=== PATIENT | male | born 1955 | race Caucasian/White ===

== ENCOUNTER 2018-02-19 12:44 | Emergency (ER) | payer OTHER, SELFPAY ==
[2018-02-19] VITALS (7 sets, daily range): BP systolic 108–120; BP diastolic 62–77; PULSE 74–93; RESP 12–16; O2SAT 93–97
--- NOTE | 2018-02-19 12:55 | DI.RAD.S_ITS ---
PROCEDURE: XR CHEST 1V INDICATIONS: chest pain TECHNIQUE: One view of the chest was acquired. COMPARISON: None. FINDINGS: Surgical changes and devices: None. Lungs and pleura: No pleural effusions or pneumothorax. Slight increased pulmonary vascularity. Mediastinum: Mediastinal contours appear normal. Heart size is normal. Bones and chest wall: No suspicious bony lesions. Overlying soft tissues appear unremarkable. IMPRESSION: Slight increased pulmonary vascularity. Dictated by: Haley Dias M.D. on 02/19/2018 at 14:39 Approved by: Haley Dias M.D. on 02/19/2018 at 14:40
[2018-02-19] MEDS: ASPIRIN 81 MG TAB 324 MG PO (12:57)
[2018-02-19 13:06] LABS: INR 1.1 (0.9-1.3); Prothrombin Time 11.5 SECONDS (10.1-12.7)
[2018-02-19 13:09] LABS: PTT Partial Thromboplastin Tim 24 SECONDS (26.4-36.2)
--- NOTE | 2018-02-19 13:09 | PC.NURSE ---
Assumed care. To room 8.
[2018-02-19 13:14] LABS: Alanine Aminotransferase 40 IU/L (21-72); Albumin 4.3 g/dL (3.5-5.0); Albumin Globulin Ratio 1.5 (1.0-2.8); Alkaline Phosphatase 45 U/L (38-126); Aspartate Aminotransferase 29 IU/L (17-59); BUN Creatinine Ratio 21.3 (6-22); Bilirubin Total 1.3 mg/dL (0.2-1.3); Blood Urea Nitrogen 17 mg/dL (9-20); Calcium 9.2 mg/dL (8.4-10.2); Carbon Dioxide 28 mmol/L (22-32); Chloride 101 mmol/L (98-107); Creatine Kinase 333 U/L (55-170); Estimated Glomerular Filt Rate > 60.0 mL/min (>60); Globulin 2.8 g/dL (1.7-4.1); Glucose 137 mg/dL (80-110); Lipase 149 U/L (23-300); Potassium 4.4 mmol/L (3.4-5.1); Sodium 137 mmol/L (137-145); Total Protein 7.1 g/dL (6.3-8.2)
[2018-02-19 13:29] LABS: Troponin I < 0.012 ng/mL (0.01-0.034)
[2018-02-19 13:30] LABS: CKMB % Relative Index 0.9 % (1.5-5.0); Creatine Kinase MB 3.06 ng/mL (<2.37); HEMOLYSIS 28 (0-50)
[2018-02-19 14:04] LABS: Add Manual Diff / Slide Review NO; Basophils Percent Auto 0.6 % (0-2); Eosinophils Percent Auto 2.3 % (2-4); Hematocrit 48.1 % (41-53); Hemoglobin 16.4 g/dL (13.5-17.5); Mean Corpuscular Hemoglobin 31.4 PG (26-34); Mean Corpuscular Volume 92.4 fL (80-100); Monocytes Percent Auto 7.9 % (3-14); Neutrophils Absolute Auto 7700 /uL (3000-5900); Neutrophils Percent Auto 67.2 % (50-75); Platelet Count 261 X10^3/uL (150-400); Red Blood Cell Count 5.21 X10^6/uL (4.5-5.9); Red Cell Distribution Width 12.8 % (11.6-14.8); White Blood Cell Count 11.5 X10^3/uL (4.5-11.0)
[2018-02-19 14:42] LABS: RBC Morphology Normal Morphology
[2018-02-19 14:51] LABS: D Dimer 337 ng/mL (<230)
--- NOTE | 2018-02-19 15:04 | DI.CT.S_ITS ---
PROCEDURE: CT ANGIO CHEST PE PROTOCOL INDICATIONS: lightededness w/ hypotension TECHNIQUE: After the administration of intravenous contrast, 2 mm thick sections acquired from the pulmonary apices to the posterior costophrenic angles. 3-dimensional maximum intensity projection (MIP) coronal and sagittal reformats were then acquired through the thorax. For radiation dose reduction, the following was used: automated exposure control, adjustment of mA and/or kV according to patient size. COMPARISON: [facility], CR, XR CHEST 1V, 02/19/2018, 13:50. FINDINGS: Image quality: Excellent. Pulmonary arteries: Pulmonary arteries are normal in size, and demonstrate no intraluminal filling defects to suggest central pulmonary embolism. Lungs and pleura: Lungs are clear. No pleural effusions or pneumothorax. Central and peripheral airways are patent. Mediastinum: Heart size is normal, without pericardial effusion. No mediastinal or hilar adenopathy. Thoracic aorta is normal in caliber and enhancement. Esophagus demonstrates an appearance of diffuse moderate thickening. There is a hiatal hernia. Bones and chest wall: No suspicious bony lesions. Ribs and thoracic spine appear intact throughout. Thyroid gland is unremarkable. No axillary or supraclavicular adenopathy. Abdomen: Left renal cyst is noted. Otherwise, visualized upper abdominal solid organs appear normal in the early arterial phase of enhancement. IMPRESSION: 1. No pulmonary embolism. 2. Diffuse thickening of the esophagus as above. This could be related to esophagitis. However, clinical followup is recommended. Dictated by: Haley Dias M.D. on 02/19/2018 at 16:49 Approved by: Haley Dias M.D. on 02/19/2018 at 16:53
[2018-02-19 15:42] LABS: Troponin I < 0.012 ng/mL (0.01-0.034)
--- NOTE | 2018-02-19 18:21 | ED_ITS ---
HPI - Chest Pain General Chief Complaint: Chest Pain Stated Complaint: PAIN IN CHEST AND HOT History of Present Illness HPI narrative: HPI 63-year-old male active smoker with HTN, HLD, CHF presents for evaluation of a resolved/resolving sudden onset episode approximately 2 hours duration of lightheadedness, chest warmth, and the feeling that he is going to pass out. Patient denies having active chest pain of the time of the symptoms, felt mildly unsteady, and was without nausea or vomiting. Patient unable to identify any provoking or relieving factors during this episode. M/S/F/SocHx notable for: please see HPI; remainder reviewed with patient and in chart. ROS: Negative constitutional, eye, cardiovascular, pulmonary, GI, , MSK, skin , neurologic, psychiatric, endocrine unless noted in the HPI. Exam Gen: Pleasant, non-toxic appearing, resting comfortably. HEENT: NC, AT, PEERL, EOMI. Resp: Clear to auscultation bilaterally, normal work of breathing. Card: RRR with no M/R/G, no crackles in lung bases, no pedal edema, no JVD appreciated. GI: NT/ND Vascular: Both ankles, calves, and thighs of equal size, no calf tenderness to palpation bilaterally. MSK: No chest wall TTP. No visible deformities, strength and tone WNL. Skin: Normal color with no visible lesions. Neuro: AO x 3, no facial asymmetry, vision and hearing WNL. Psych: Mood and affect appropriate. Labs / Imaging (pertinent): WBC 11.5, Hb 16.4, Na 137, K 4.4. Troponin (12:52 PM) < 0.012, troponin (3 PM) <0.012 d-dimer 337 EKG: SR at 86 bpm, no IA segment depressions, no new ST segment changes, new LBBB, or T-wave changes that would suggest acute ischemia. CXR: slight increase pulmonary vascularity. CTA Chest: no pulmonary embolus and. Diffuse thickening of the esophagus as above. This could be related to esophagitis, however clinical follow-up is recommended. MDM Previous chart, nursing note, and vitals reviewed. A: 63-year-old male active smoker with HTN, HLD, CHF presents for evaluation of a resolved/resolving sudden onset episode approximately 2 hours duration of lightheadedness, chest warmth, and the feeling that he is going to pass out. DDx and Evaluation: * ACS - doubt ACS given a non-ischemic EKG and negative serial troponins. * UA - unlikely given the atypical history and alternate diagnosis. HEART score 3-4 depending upon interpretation of history (Hx - 0-1, EKG - 0, age - 1, risk factors - 2, troponin - 0). * Pericarditis - consider pericarditis unlikely given the lack of IA segment depressions as well as the absence of diffuse ST-segment elevations, lack of reduction of pain when supine, and lack of a friction rub. * Myocarditis - unlikely given the negative troponin and an EKG without characteristic IA-segment or ST-segment changes. * Dissection - dissection is unlikely given symptoms, and lack of mediastinal widening. * PE - d-dimer elevated, CTA negative. * Mediastinal Air - no evidence by CXR or auscultation. * Pneumothorax - no evidence by CXR or physical exam. * MSK - doubt given lack of reproducibility on exam. * Endocarditis - no identifiable risk factors, patient afebrile, no new murmurs appreciated on exam; doubt. * GI (Esophageal rupture, GERD) - esophageal rupture effectively excluded given the lack of mediastinal widening, non-toxic appearance, and lack of identifiable risk factors. While not definitively excluded, further evaluation of GERD is deferred to an outpatient setting * arrhythmia - history weekly suggestive of arrhythmia. This was discussed with the patient as well as the need for follow-up.. ED Course: Patient given ASA. Vital signs remained stable and within clinically acceptable limits. Disposition: Discharge with PCP follow up. Return to care precautions given verbally and in writing. Extensive discussion was had with the patient regarding inpatient evaluation - with likely reduce overall risk - versus outpatient evaluation. Patient is aware of increased risk with outpatient evaluation but wishes to be discharged and will follow up with his PCP on Wednesday. Patient fully asymptomatic at time of discharge. Impression: Chest Pain. (please reference below for remainder of encounter information) Related Data Previous Rx's Medication Instructions Recorded furosemide [Lasix] 20 mg PO Q DAY #30 tab 10/13/16 amlodipine [Norvasc] 5 mg PO QDAY #90 tab 07/05/17 atorvastatin [Lipitor] 10 mg PO HS #90 tab 07/05/17 lisinopril 20 mg PO QDAY #180 tab 07/05/17 ketoconazole 2 % topical cream 1 applictn TOP BID #30 gram 12/08/17 sildenafil [Viagra] 100 mg PO QDAY #13 tab 01/17/18 Allergies Allergy/AdvReac Type Severity Reaction Status Date / Time AZITHROMYCIN Allergy Mild HIVES ALL Uncoded 02/19/18 13:01 OVER HIS BODY/ ITCHY PFSH Medical History Hearing deficit (Chronic) Vision disorder (Chronic) Surgical History Anesthesia (Resolved) Social History Smoking Status: Current every day smoker Exam Initial Vital Signs Initial Vital Signs: Vital Signs Pulse Rate 93 H 02/19/18 12:45 Respiratory Rate 14 02/19/18 12:45 Blood Pressure 115/72 02/19/18 12:45 Pulse Oximetry 93 02/19/18 12:45 Course Orders Ordered: ED Orders 02/19/18 12:52 Complete Blood Count AUTO DIFF Stat Comprehensive Metabolic Panel Stat D Dimer Stat Lipase Stat Partial Thromboplastin Time Stat Prothrombin Time INR Stat Troponin & CK Cardiac Panel Stat 02/19/18 12:55 XR chest 1V Stat EKG-12 Lead Stat 02/19/18 15:00 Troponin I Stat 02/19/18 15:04 CT angio chest PE protocol Stat Nitroglycerin (Nitrostat) 0.4 mg SL [id number] PRN PRN Reason: Chest Pain Discontinued Medications Aspirin (Aspirin Chew) 324 mg PO NOW ONE Stop: 02/19/18 12:56 Last Admin: 02/19/18 12:57 Dose: 324 mg Vital Signs - 8 hr 02/19/18 12:45 02/19/18 13:00 02/19/18 13:02 Pulse Rate 93 H 93 H 88 Respiratory Rate 14 14 14 Blood Pressure 115/72 Blood Pressure [Left Arm] 109/72 115/72 Pulse Oximetry 93 93 94 02/19/18 14:00 02/19/18 15:30 02/19/18 16:00 Pulse Rate 76 74 77 Respiratory Rate 13 12 15 Blood Pressure Blood Pressure [Left Arm] 116/62 120/69 108/77 Pulse Oximetry 97 96 96 02/19/18 16:30 Pulse Rate 77 Respiratory Rate 16 Blood Pressure Blood Pressure [Left Arm] 108/77 Pulse Oximetry 97 MDM - Chest Pain Lab Data Result diagrams: 02/19/18 12:52 02/19/18 12:52 Lab Results 02/19/18 02/19/18 02/19/18 Range/Units 12:52 12:52 12:52 WBC 11.5 H (4.5-11.0) X10^3/uL RBC 5.21 (4.5-5.9) X10^6/uL Hgb 16.4 (13.5-17.5) g/dL Hct 48.1 (41-53) % MCV 92.4 (80-100) fL MCH 31.4 (26-34) PG MCHC 34.0 (30-36) % RDW 12.8 (11.6-14.8) % Plt Count 261 (150-400) X10^3/uL Neut % (Auto) 67.2 (50-75) % Lymph % (Auto) 22.0 L (25-40) % [place] % (Auto) 7.9 (3-14) % Eos % (Auto) 2.3 (2-4) % Baso % (Auto) 0.6 (0-2) % Neut # (Auto) 7700 H (3817-5298) /uL Plt Morphology Comment RBC Morphology Normal morphology PT 11.5 (10.1-12.7) SECONDS INR 1.1 (0.9-1.3) APTT 24 L (26.4-36.2) SECONDS D-Dimer (<230) ng/mL Sodium 137 (137-145) mmol/L Potassium 4.4 (3.4-5.1) mmol/L Chloride 101 (98-107) mmol/L Carbon Dioxide 28 (22-32) mmol/L BUN 17 (9-20) mg/dL Creatinine 0.80 (0.66-1.25) mg/dL Estimated GFR > 60.0 (>60) mL/min BUN/Creatinine Ratio 21.3 (6-22) Glucose 137 H (80-110) mg/dL Calcium 9.2 (8.4-10.2) mg/dL Total Bilirubin 1.3 (0.2-1.3) mg/dL AST 29 (17-59) IU/L ALT 40 (21-72) IU/L Alkaline Phosphatase 45 (38-126) U/L Total Creatine Kinase 333 H (55-170) U/L CK-MB (CK-2) 3.06 H (<2.37) ng/mL CK-MB (CK-2) Rel Index 0.9 L (1.5-5.0) % Troponin I < 0.012 (0.01-0.034) ng/mL Total Protein 7.1 (6.3-8.2) g/dL Albumin 4.3 (3.5-5.0) g/dL Globulin 2.8 (1.7-4.1) g/dL Albumin/Globulin Ratio 1.5 (1.0-2.8) Lipase 149 (23-300) U/L 02/19/18 02/19/18 Range/Units 12:52 15:00 WBC (4.5-11.0) X10^3/uL RBC (4.5-5.9) X10^6/uL Hgb (13.5-17.5) g/dL Hct (41-53) % MCV (80-100) fL MCH (26-34) PG MCHC (30-36) % RDW (11.6-14.8) % Plt Count (150-400) X10^3/uL Neut % (Auto) (50-75) % Lymph % (Auto) (25-40) % [place] % (Auto) (3-14) % Eos % (Auto) (2-4) % Baso % (Auto) (0-2) % Neut # (Auto) (8010-5247) /uL Plt Morphology Comment RBC Morphology PT (10.1-12.7) SECONDS INR (0.9-1.3) APTT (26.4-36.2) SECONDS D-Dimer 337 H (<230) ng/mL Sodium (137-145) mmol/L Potassium (3.4-5.1) mmol/L Chloride (98-107) mmol/L Carbon Dioxide (22-32) mmol/L BUN (9-20) mg/dL Creatinine (0.66-1.25) mg/dL Estimated GFR (>60) mL/min BUN/Creatinine Ratio (6-22) Glucose (80-110) mg/dL Calcium (8.4-10.2) mg/dL Total Bilirubin (0.2-1.3) mg/dL AST (17-59) IU/L ALT (21-72) IU/L Alkaline Phosphatase (38-126) U/L Total Creatine Kinase (55-170) U/L CK-MB (CK-2) (<2.37) ng/mL CK-MB (CK-2) Rel Index (1.5-5.0) % Troponin I < 0.012 (0.01-0.034) ng/mL Total Protein (6.3-8.2) g/dL Albumin (3.5-5.0) g/dL Globulin (1.7-4.1) g/dL Albumin/Globulin Ratio (1.0-2.8) Lipase (23-300) U/L Discharge Plan Departure Prescriptions: No Action furosemide [Lasix] 20 MG tablet 20 mg PO Q DAY Qty: 30 RF: 0 amlodipine [Norvasc] 5 MG tablet 5 mg PO QDAY Qty: 90 RF: 1 atorvastatin [Lipitor] 10 MG tablet 10 mg PO HS Qty: 90 RF: 3 lisinopril 10 MG tablet 20 mg PO QDAY Qty: 180 RF: 3 ketoconazole 2 % cream 1 applictn TOP BID Qty: 30 RF: 1 sildenafil [Viagra] 100 mg tablet 100 mg PO QDAY Qty: 13 RF: 3
== END 2018-02-19 18:36 | disposition home or self-care (01) ==
PROVIDERS: Emergency Provider Emergency Medicine; Family Provider Family Medicine; PCP Family Medicine
DX: R07.89 Other chest pain (principal)
CPT/HCPCS: 36415; 36591; 71045; 71275; 80053; 82550; 82553; 83690; 84484; 85025; 85379; 85610; 85730; 93005; 93041; 99284; 99285; Q9967

== ENCOUNTER → 2019-05-31 10:45 | Outpatient (CLI) | payer OTHER, SELFPAY ==
[2019-05-31 12:09] LABS: Add Manual Diff / Slide Review NO; Basophils Absolute Auto 100 /uL (0-100); Eosinophils Absolute Auto 400 /uL (0-450); Eosinophils Percent Auto 6.9 % (2-4); Hematocrit 49.1 % (41-53); Hemoglobin 16.7 g/dL (13.5-17.5); Lymphocytes Absolute Auto 2000 /uL (1100-4500); Mean Corpuscular Hemoglobin 31.7 PG (26-34); Mean Corpuscular Volume 93.3 fL (80-100); Monocytes Absolute Auto 600 /uL (0-900); Monocytes Percent Auto 9.9 % (3-14); Neutrophils Absolute Auto 2900 /uL (1500-7000); Neutrophils Percent Auto 48.2 % (50-75); Platelet Count 218 X10^3/uL (150-400); Red Blood Cell Count 5.26 X10^6/uL (4.5-5.9); Red Cell Distribution Width 13.3 % (11.6-14.8)
[2019-05-31 12:16] LABS: Hemoglobin A1C% w Est Avg Glu 5.5 % (4.0-6.0)
[2019-05-31 12:28] LABS: Alanine Aminotransferase 45 IU/L (21-72); Albumin Globulin Ratio 1.7 (1.0-2.8); Alkaline Phosphatase 65 U/L (38-126); Aspartate Aminotransferase 33 IU/L (17-59); BUN Creatinine Ratio 21.7 (6-22); Bilirubin Total 1.3 mg/dL (0.2-1.3); Blood Urea Nitrogen 13 mg/dL (9-20); Calcium 9.9 mg/dL (8.4-10.2); Carbon Dioxide 26 mmol/L (22-32); Chloride 100 mmol/L (98-107); Cholesterol 206 mg/dL (140-199); Estimated Glomerular Filt Rate > 60.0 mL/min (>60); Globulin 2.9 g/dL (1.7-4.1); Glucose 107 mg/dL (80-110); HDL Cholesterol 65 mg/dL (40-60); HEMOLYSIS < 15 (0-50); LDL Cholesterol Calculated 114 mg/dL (<100); Potassium 4.8 mmol/L (3.4-5.1); Sodium 138 mmol/L (137-145); Total Protein 7.9 g/dL (6.3-8.2); Triglycerides 137 mg/dL (35-150)
[2019-05-31 12:49] LABS: Thyroid Stimulating Hormone 0.77 uIU/mL (0.47-4.68)
[2019-05-31 13:00] LABS: Prostate Specific Antigen Scrn 2.59 ng/mL (0.1-4.0)
== END ==
PROVIDERS: PCP Family Medicine; Visit Provider Family Medicine
DX: Z13.6 Encounter for screening for cardiovascular disorders (principal); Z12.5 Encounter for screening for malignant neoplasm of prostate; Z13.1 Encounter for screening for diabetes mellitus
CPT/HCPCS: 36415; 80053; 80061; 83036; 84443; 85025; G0103

== ENCOUNTER 2019-07-14 08:45 | Day surgery (SDC) | payer OTHER, SELFPAY ==
--- NOTE | 2019-07-14 | PATH_ITS ---
[facility] Accession Number: [id number] . 01 Material submitted: . rectum - RECTAL POLYP AT 15 CM X3 . 02 Diagnosis: Rectum, Polyps at 15 cm, Biopsies: Tubular adenoma in one of three fragments. Hyperplastic polyp in two fragments. [facility] 07/17/2019 1024 Local . 02 Electronically signed: . Katie Chase MD, Pathologist NPI- [id number] . 01 Gross description: . Received in formalin, labeled with the patient's name Garry Bryant and rectal polyp at 15 cm x2, are three fragments of garcia, soft tissue ranging in size from 0.7 x 0.6 x 0.5 cm to 0.4 x 0.2 x 0.2 cm. The larger fragment is inked black at the possible resection margin, serially sectioned into four slices, and entirely submitted in cassette A1. The two smaller fragments are entirely submitted in cassette A2. ([id number]) /FRR 07/15/2019 0933 Local . 02 Pathologist provided ICD-10: D12.8 . 02 CPT . 319352 Performed at: 01 [facility] [address] [facility], [place], [place] [id number] MD Konrad Flower MD Phone: [phone] Performed at: 02 [facility] [address] [place], [place] [id number] MD Katie Chase MD Phone: [phone]
[2019-07-14 09:04] VITALS: BP 153/83; PULSE 92; RESP 16; TEMP 36.6; O2SAT 96; BMI 25.3
[2019-07-14] MEDS: SODIUM CHLORIDE 0.9% 1,000 ML 200 ML IV (09:09)
--- NOTE | 2019-07-14 10:02 | P.HP_ITS ---
History of Present Illness History of Present Illness Date Patient Seen: 07/14/19 Time Patient Seen: 10:02 Chief complaint: [id number] Narrative: This is a 64-year-old man who is never had a colonoscopy. He has a history of hypertension, which is controlled on medication. He denies any personal history of melena or hematochezia, abdominal pain, or unexplained weight loss. He denies any family history of colon polyps or colon cancers. ROS: Thirteen system review is negative other than as mentioned below and in HPI. PE: GENERAL: Well groomed and cooperative. Appears stated age. Answers questions promptly and appropriately. Vital signs noted. HENT: Normocephalic, atraumatic. Hearing intact. Oral mucosa is pink and moist. EYES: Conjunctiva pink, sclera white, no periorbital swelling. CARDIOVASCULAR: Regular rate. No pedal edema. RESPIRATORY: Non tachypneic, breathing comfortably on room air. GASTROINTESTINAL: Abdomen soft and non-distended GENITALURINARY: No flank tenderness. MUSCULOSKELETAL: Equal tone and mass bilaterally. SKIN: Warm, dry, soft, appropriate color for ethnicity. No other lesions, rashes, or wounds. NEURO: Alert and Oriented X 3. No gross sensory deficits, or cognitive issues. PSYCH: Appropriate affect and mood. Patient History Medical History Hearing deficit (Chronic) Vision disorder (Chronic) Surgical History Anesthesia (Resolved) Family & Social History Social History: household members spouse Tobacco & Substance use: Smoking Status Current every day smoker Meds Home Medications and Allergies Home Medications Medication Instructions Recorded Confirmed Type amlodipine 5 mg tablet 5 mg PO QDAY #90 tab 06/07/19 07/14/19 Rx atorvastatin 10 mg tablet 20 mg PO HS #180 tab 06/07/19 07/14/19 Rx ketoconazole 2 % topical cream 1 applictn TOP BID PRN gram 06/07/19 07/14/19 History lisinopril 10 mg tablet 20 mg PO BID #360 tab 06/07/19 07/14/19 Rx sildenafil 100 mg tablet 100 mg PO QDAY PRN tab 06/07/19 07/14/19 History Allergies Allergy/AdvReac Type Severity Reaction Status Date / Time AZITHROMYCIN Allergy Mild HIVES ALL Uncoded 07/14/19 09:03 OVER HIS BODY/ ITCHY Exam Vital Signs (past 8 hours): - 07/14/19 09:04 Temperature 98 F Pulse Rate 92 H Respiratory Rate 16 Blood Pressure 153/83 H Pulse Oximetry 96 Oxygen Delivery Method Room Air Assessment & Plan Assessment and plan (1) At average risk for colon cancer: Current visit: Yes Status: Acute (2) Colon cancer screening: Current visit: Yes Status: Acute Assessment & Plan narrative: Risks and benefits of colonoscopy and possible polypectomy were discussed with the patient including risk of bleeding, perforation, need for additional procedures. The patient desires to proceed wi th his colonoscopy procedure Time Spent With Patient Time with patient: 15-24 minutes Quality VTE Deep Vein Thrombosis/Pulmonary Embolism Present on Admission: No
--- NOTE | 2019-07-14 10:28 | PM.OP.ENDO ---
Operative Date/Time/Diagnoses Date of procedure: 07/14/19 Time of procedure: 10:28 Pre-op diagnosis: Average risk for colon cancer, never had a screening colonoscopy Post-op diagnosis: other (Rectal polyp x3) Procedure & Clinicians Study performed: Colonoscopy, polypectomy x3 with hot snare and cold forceps Same procedure as scheduled: Yes Indications: This is a 64-year-old man at average risk for colon cancers never had a screening colonoscopy Surgeon: Janie Loving Procedure Notes SCOAP/Timeout: Performed Procedure in detail: The patient was brought to the room and placed in left lateral decubitus position with all bony prominences padded. A time-out was performed and then the patient was given procedural sedation starting with [4] mg of Versed and [100] mcg of fentanyl. He received a total of 5 mg of Versed for the procedure. Vitals were monitored throughout the procedure and remained stable. Once adequately sedated the procedure was begun. A rectal exam was performed revealing [no abnormalities]. The colonoscope was then introduced to the rectum and advanced to the cecum in the usual fashion. [There were 3 polyps in the rectum, 2 were fairly large greater than a cm, and 1 was about 8 mm in size. All 3 were completely removed with hot snare and cold forceps.]The cecum was identified by the appendiceal orifice, the mucosal try fold, and the ileocecal valve. The scope was then retracted while rotating side to side and examining each mucosal fold. [] At the conclusion procedure retroflexion was performed and [small grade 1-2 internal hemorrhoids without stigmata of bleeding were seen]. The scope was then withdrawn from the rectum the procedure was concluded. The patient tolerated the procedure well was transferred to the PACU in stable condition. Scope withdrawal time: 16 Sedation minutes: 20 Findings: polyp Specimen(s): other (Three rectal polyps) Complications: none Impression: Rectal polyps concerning for precancerous lesions Post-procedure Recommendations: Colonscopy in 5 years (Depending on pathology results) Follow up: as needed Disposition: PACU
[2019-07-14] MEDS: MIDAZOLAM 5 MG/5 ML VIAL IV (10:31)
[2019-07-14] MEDS: fentaNYL 250 MCG/5 ML INJ IV (10:31)
[2019-07-14 10:33] VITALS: BP 104/66; PULSE 81; RESP 14; TEMP 36.2; O2SAT 93
[2019-07-14 10:38] VITALS: BP 114/67; PULSE 85; RESP 15; O2SAT 95
[2019-07-14 10:43] VITALS: BP 109/73; PULSE 83; RESP 14; TEMP 36.4; O2SAT 95
[2019-07-14 11:02] VITALS: BP 116/65; PULSE 65; RESP 20; TEMP 36.4
--- NOTE | 2019-07-14 11:03 | SUR.PHASEI ---
Patient discharged home with . No pain at discharge. AAO x 3. Taking PO fluids without difficulty. All discharge instructions given to patient and .
== END 2019-07-14 11:04 | disposition home or self-care (01) ==
PROVIDERS: PCP Family Medicine; Visit Provider Surgery
PROC: 0DJD8ZZ Inspection of Lower Intestinal Tract, Via Natural or Artificial Opening Endoscopic (ICD-10-PCS; CPT 45378; principal; 2019-07-14 10:00)
DX: Z12.11 Encounter for screening for malignant neoplasm of colon (principal); K64.0 First degree hemorrhoids; D12.8 Benign neoplasm of rectum
CPT/HCPCS: 45385; 45380; 99152; J2250; J3010

== ENCOUNTER → 2019-07-17 13:39 | Outpatient (CLI) | payer OTHER, SELFPAY ==
--- NOTE | 2019-07-17 15:04 | PM.TREADMILL ---
Cardiac Stress Test Report Referral & Results Date Patient Seen: 07/17/19 Requesting provider: Jalil Dodd Indication: Chest discomfort Rest ECG: Unremarkable Procedure Note: Today following both written and verbal informed consent, the patient was exercised according to a standard Alan protocol. The patient exercised for a total of 7 minutes 53 seconds achieving a maximum heart rate of 167. Patient's maximum systolic blood pressure was 194. This was an estimated 10.1 MET's. There are no ST-T segment changes identified Normal heart rate and blood pressure response to exercise Functional aerobic impairment rates about 0 on the sedentary scale Occasional PVC identified Impression: No evidence of ischemia. Average exercise capacity Please note: Actual ECG tracings can be found in the PACS system.
== END ==
PROVIDERS: PCP Family Medicine; Visit Provider Family Medicine
DX: R07.89 Other chest pain (principal)
CPT/HCPCS: 93016; 93017; 93018

== ENCOUNTER 2019-12-18 19:48 | Emergency (ER) | payer OTHER, SELFPAY ==
[2019-12-18 20:00] VITALS: BP 192/98; PULSE 88; RESP 16; TEMP 37.1; O2SAT 98; BMI 26.4
--- NOTE | 2019-12-18 20:10 | DI.CT.S_ITS ---
PROCEDURE: CT HEAD/BRAIN WO CON INDICATIONS: hit by a flying golf ball TECHNIQUE: Noncontrast 4.5 mm thick angled axial sections acquired from the foramen magnum to the vertex, with coronal and sagittal reformats. For radiation dose reduction, the following was used: automated exposure control, adjustment of mA and/or kV according to patient size. COMPARISON: None. FINDINGS: Image quality: Excellent. CSF spaces: Basal cisterns are patent. No extra-axial fluid collections. Ventricles are normal in size and shape. Brain: No midline shift. No intracranial masses or hemorrhage. Ayala-white matter interface is normal. Skull and face: There is minor soft tissue swelling at the vertex just to the right of midline at the indicated point of impact. No underlying fracture. Sinuses: Mucosal thickening of the ethmoid air cells. Chronic appearing opacification of the frontal sinuses. The visible portions of maxillary and sphenoid sinuses are aerated.. IMPRESSION: 1. No CT evidence of acute intracranial trauma. 2. Minor soft tissue swelling at the vertex without underlying fracture. Dictated by: Terrie Valle M.D. on 12/18/2019 at 20:41 Approved by: Terrie Valle M.D. on 12/18/2019 at 20:45
[2019-12-18] MEDS: TET,DIPH,PERTUSS(ACELL),VAC/PF 0.5 ML SYRINGE IM (20:34)
--- NOTE | 2019-12-18 21:01 | ED.HEATRA ---
HPI - Head Injury <GERALDO Wilkinson - Last Filed: 12/18/19 21:44> General Chief complaint: Head Injury Stated complaint: Hit In Head With Golf Ball Time Seen by Provider: 12/18/19 19:55 Source: patient Mode of arrival: Ambulatory Limitations: no limitations History of Present Illness HPI Narrative: This is a 64-year-old male, smoker, with history of hypertension hyperlipidemia presents to ED with significant other with chief complain of closed head injury and small laceration on top of his head. Patient was at [employer] and a golf ball flew down and hit his head hard. He does not take anticoagulants. Patient reports from the impact he went down on his knees due to instant pain but was not dizzy or had lose consciousness. He reports mild discomfort without significant headache. He denies vomiting, vision change, seizure, weakness to extremities, mid cervical tenderness after the injury. He bled significantly from the injury and small laceration after putting direct pressure for 10-15 minutes the bleeding had slowed down. Spouse was concerned it appears to be patient had increased hearing difficulty but patient states he uses hearing aids. Unknown status immunization for tetanus. Related Data Home Medications Medication Instructions Recorded Confirmed ketoconazole 2 % topical cream 1 applictn TOP BID PRN gram 06/07/19 07/19/19 sildenafil 100 mg tablet 100 mg PO QDAY PRN tab 06/07/19 07/19/19 Previous Rx's Medication Instructions Recorded amlodipine 5 mg tablet 5 mg PO QDAY #90 tab 06/07/19 atorvastatin 10 mg tablet 20 mg PO HS #180 tab 06/07/19 lisinopril 10 mg tablet 20 mg PO BID #360 tab 06/07/19 Allergies Allergy/AdvReac Type Severity Reaction Status Date / Time AZITHROMYCIN Allergy Mild HIVES ALL Uncoded 07/19/19 11:51 OVER HIS BODY/ ITCHY Review of Systems <GERALDO Wilkinson - Last Filed: 12/18/19 21:44> Review of Systems Narrative: General: Denies fever, chills, fatigue, malaise, sweats. HEENT: Denies sinus pain, ear pain, sore throat, difficulty swallowing, dizziness. Respiratory: Denies dyspnea, cough, wheezing, hemoptysis, sputum. Cardiovascular: Denies chest pain, palpitations, orthopnea, edema. Gastrointestinal: Denies nausea, vomiting, abdominal pain, diarrhea, constipation, melena. : Denies dysuria, frequency, incontinence, hematuria, urinary retention. Musculoskeletal: Denies weakness, joint pain or bony pain. Skin: See HPI Neurologic: Denies weakness, headache, numbness, change in speech, confusion, seizures, incoordination. Psychiatric: No concerning psychosocial issues. 12-point review of systems is negative except for those stated above. Patient History <GERALDO Wilkinson - Last Filed: 12/18/19 21:44> Medical History Hearing deficit (Chronic) Hyperlipidemia (Acute) Hypertension (Acute) Vision disorder (Chronic) Surgical History Anesthesia (Resolved) Social History marital status: household members: spouse Smoking Status: Current every day smoker during the past year weight has: remained stable well-balanced diet: daily or most days daily servings fruits/ve-4 caffeine: Yes eating out: rarely or never Type(s) of exercise: walking and other frequency: 1-2 times per week duration: 30-45 minutes/day Smoking Status: Current every day smoker alcohol intake frequency: 3 or more drinks per day Substance Use Type: marijuana Exam <GERALDO Wilkinson - Last Filed: 12/18/19 21:44> Narrative Exam Narrative: General appearance: well developed, well nourished, in no acute distress. Head: small swelling top of the head with slow oozing bleed from non-linear laceration. Mild tenderness to palpate. ENT: Bilateral auditory canals and tympanic membranes clear. Slightly decreased but able to hear finger rubbing gently. Nose without bleeding, purulent discharge, septal hematoma or deviation. Turbinate without erythema or swelling. Mucous membrane moist, no mucosal lesion. Throat without erythema, tonsillar hypertrophy or exudate. Uvula in midline, airway patent. Neck/Thyroid: neck supple, full range of motion, no step-offs, no visible masses or meningeal signs. No JVD, non-tender without lymphadenopathy. Skin: About 1 cm non-linear shape laceration to slight off to right on top of head. Heart: no clubbing, no cyanosis, no edema. S1 and S2 normal. RRR w/o murmurs, clicks, or bruits. Lungs: Breathing even and unlabored. No stridor. No accessory muscles used. Able to speak in full sentences. Chest: normal shape and expansion. Abdomen: non-obese, non-distended. Neurologic: alert and oriented. Cognitive exam, UTILITY TENDER CARDING and PNS grossly intact on informal exam. Psych: good eye contact, normal affect. Initial Vital Signs Initial Vital Signs: Vital Signs Temperature 98.8 F 12/18/19 20:00 Pulse Rate 88 12/18/19 20:00 Respiratory Rate 16 12/18/19 20:00 Blood Pressure 192/98 H 12/18/19 20:00 Pulse Oximetry 98 12/18/19 20:00 <Tony Marks DO - Last Filed: 12/19/19 06:21> Initial Vital Signs Initial Vital Signs: Vital Signs Temperature 98.8 F 12/18/19 20:00 Pulse Rate 88 12/18/19 20:00 Respiratory Rate 16 12/18/19 20:00 Blood Pressure 192/98 H 12/18/19 20:00 Pulse Oximetry 98 12/18/19 20:00 Scores <GERALDO Wilkinson - Last Filed: 12/18/19 21:44> GCS [place] coma scale eye opening: Spontaneous Zak coma scale verbal response: Orientated [place] coma scale motor response: Obey commands Zak coma scale total score: 15 Nexus Score for C-Spine Focal Neurologic deficit present: No Midline spinal tenderness present: No Altered level of conciousness present: No Intoxication present: No Distracting Injury Present: No Nexus Criteria for C-spine: 0 Course <GERALDO Wilkinson - Last Filed: 12/18/19 21:44> Orders Ordered: Discontinued Medications Bacitracin (Bacitracin) 1 applic TOP NOW ONE Stop: 12/18/19 21:05 Last Admin: 12/18/19 21:24 Dose: 1 applic Documented by: JAMSHID Diphtheria/Tetanus/Acell Pertussis (Adacel) 0.5 ml IM .ONCE ONE Stop: 12/18/19 20:11 Last Admin: 12/18/19 20:34 Dose: 0.5 ml Documented by: GALA Vital Signs Vital signs: Vital Signs - 8 hr 12/18/19 20:00 Temperature 98.8 F Pulse Rate 88 Respiratory Rate 16 Blood Pressure 192/98 H Pulse Oximetry 98 <Tony Marks DO - Last Filed: 12/19/19 06:21> Orders Ordered: Discontinued Medications Bacitracin (Bacitracin) 1 applic TOP NOW ONE Stop: 12/18/19 21:05 Last Admin: 12/18/19 21:24 Dose: 1 applic Documented by: JAMSHID Diphtheria/Tetanus/Acell Pertussis (Adacel) 0.5 ml IM .ONCE ONE Stop: 12/18/19 20:11 Last Admin: 12/18/19 20:34 Dose: 0.5 ml Documented by: GALA Vital Signs Vital signs: Vital Signs - 8 hr 12/18/19 20:00 Temperature 98.8 F Pulse Rate 88 Respiratory Rate 16 Blood Pressure 192/98 H Pulse Oximetry 98 MDM - Head Injury <GERALDO Wilkinson - Last Filed: 12/18/19 21:44> Differential Diagnosis Differential diagnosis: Likely closed head injury and other (Scalp laceration, intracranial bleed) Medical Records Attestation: I reviewed the patient's medical records. Imaging Data CT scan - head: Radiologist's Impression: [place] [address] CT Scan Report Signed Patient: Garry Bryant JMR#: [id number] : 6Acct:[id number] Age/Sex: 64 / MDate of Service: 12/18/19 Loc: ED Accession Number: [id number] Procedure: CT head/brain wo con Ordering Provider: Edgardo Stanton PROCEDURE: CT HEAD/BRAIN WO CON INDICATIONS: hit by a flying golf ball TECHNIQUE: Noncontrast 4.5 mm thick angled axial sections acquired from the foramen magnum to the vertex, with coronal and sagittal reformats. For radiation dose reduction, the following was used: automated exposure control, adjustment of mA and/or kV according to patient size. COMPARISON: None. FINDINGS: Image quality: Excellent. CSF spaces: Basal cisterns are patent. No extra-axial fluid collections. Ventricles are normal in size and shape. Brain: No midline shift. No intracranial masses or hemorrhage. Ayala-white matter interface is normal. Skull and face: There is minor soft tissue swelling at the vertex just to the right of midline at the indicated point of impact. No underlying fracture. Sinuses: Mucosal thickening of the ethmoid air cells. Chronic appearing opacification of the frontal sinuses. The visible portions of maxillary and sphenoid sinuses are aerated.. IMPRESSION: 1. No CT evidence of acute intracranial trauma. 2. Minor soft tissue swelling at the vertex without underlying fracture. Dictated by: Terrie Valle M.D. on 12/18/2019 at 20:41 Approved by: Terrie Valle M.D. on 12/18/2019 at 20:45 [facility] Narrative Medical decision making narrative: This is a 64-year-old male who presents to ED after he injured his top of hit by a golf flew down from nowhere. No focal neuro deficit appreciated during physical exam. No loss of consciousness. No anticoagulant use. However, patient states the ball came down real hard with high impact which caused a small irregular, non-linear shape laceration and significant bleeding. Head CT was ordered and shows no evidence of acute and intracranial trauma or underlying fracture but with minor soft to tissue swelling at the vertex. Wound Care was done. Return precautions for closed head injury and wound infection discussed with patient and spouse. Advised to take usej-[id number]-[id number] Tylenol and or Motrin as needed for discomfort. They both verbalized understanding in agreement with treatment plan. Tdap immunization has updated today. Discharge Plan Departure Patient Disposition: Home Clinical Impression: Laceration Closed head injury Qualifiers: Encounter type: initial encounter Qualified Code(s): S09.90XA - Unspecified injury of head, initial encounter Discharge Date/Time: 12/18/19 21:30 Instructions: Minor Wounds (Alternative Therapy), DI for Closed Head Injury Activity Restrictions/Additional Instructions: You have been diagnosed with [closed head injury hit by a flying golf ball on top of head which caused laceration from the impact. CT test does not indicate evidence of acute intracranial trauma or skull fracture. The laceration is not suturable. Tdap has been updated today.]. What to do: *Take your medications as directed. You can take xveq-ltw-obelgsg Tylenol and or Motrin as needed for discomfort. Please use dyzh-nch-zpldicw antibiotic ointment on laceration in her scalp. *Follow up with your primary care provider in 2-3 days, call for an appointment. Let them know you were seen in the ED and that we asked you to be seen in follow up. *Return to ED if you have any new, worsening, or concerning symptoms, such as [chest pain, breathing difficulty, unable to tolerate fluids, unusual behavior, seizure, vision change, weakness to extremities, vomiting, signs of infection from wound in her scalp such as increasing redness/swelling/warmth/pain/fever or any acute concerns] Prescriptions: No Action ketoconazole 2 % cream 1 applictn TOP BID PRN (Reason: Itching) RF: 0 sildenafil [Viagra] 100 mg tablet 100 mg PO QDAY PRN (Reason: Erectile Dysfunction) RF: 0 atorvastatin [Lipitor] 10 mg tablet 20 mg PO HS Qty: 180 RF: 3 lisinopril 10 mg tablet 20 mg PO BID Qty: 360 RF: 3 amlodipine [Norvasc] 5 mg tablet 5 mg PO QDAY Qty: 90 RF: 3 Referrals: Jalil Dodd MD [Primary Care Provider] - <Tony Marks DO - Last Filed: 12/19/19 06:21> Cosign ED Attending Lindaature Attestation: I was immediately available in the department for consultation. This documentation has been reviewed and I agree with assessment and plan. Supervised by Tony Marks DO
[2019-12-18] MEDS: BACITRACIN OINT 0.9 GM PCKT 1 APPLIC TOP (21:24)
[2019-12-18 21:35] VITALS: BP 163/87; PULSE 86; RESP 16; O2SAT 95
== END 2019-12-18 21:30 | disposition home or self-care (01) ==
PROVIDERS: Emergency Provider Nurse Practitioner Family; PCP Family Medicine
DX: S01.01XA Laceration without foreign body of scalp, initial encounter (principal); S09.90XA Unspecified injury of head, initial encounter; W21.04XA Struck by golf ball, initial encounter; Z23 Encounter for immunization
CPT/HCPCS: 70450; 90471; 99283; 99284; 90715

== ENCOUNTER → 2020-01-15 10:26 | Outpatient (CLI) | payer OTHER, SELFPAY ==
[2020-01-15 12:45] LABS: BUN Creatinine Ratio 22.9 (6-22); Blood Urea Nitrogen 16 mg/dL (9-20); Carbon Dioxide 24 mmol/L (22-32); Chloride 103 mmol/L (98-107); Cholesterol 176 mg/dL (140-199); Estimated Glomerular Filt Rate > 60.0 mL/min (>60); Glucose 83 mg/dL (80-110); HDL Cholesterol 62 mg/dL (40-60); HEMOLYSIS < 15 (0-50); LDL Cholesterol Calculated 89 mg/dL (<100); Potassium 5.1 mmol/L (3.4-5.1); Sodium 138 mmol/L (137-145); Triglycerides 126 mg/dL (35-150)
== END ==
PROVIDERS: PCP Family Medicine; Referring Provider Family Medicine; Visit Provider Family Medicine
DX: E78.2 Mixed hyperlipidemia (principal); I10 Essential (primary) hypertension; I49.9 Cardiac arrhythmia, unspecified
CPT/HCPCS: 36415; 80048; 80061

== ENCOUNTER → 2020-07-09 10:20 | Outpatient (CLI) | payer OTHER, SELFPAY ==
[2020-07-09 13:59] LABS: Prostate Specific Antigen Scrn 2.37 ng/mL (0.1-4.0)
== END ==
PROVIDERS: PCP Family Medicine; Referring Provider Family Medicine; Visit Provider Family Medicine
DX: E78.2 Mixed hyperlipidemia (principal); Z12.5 Encounter for screening for malignant neoplasm of prostate
CPT/HCPCS: 36415; G0103

== ENCOUNTER → 2020-10-30 12:21 | Outpatient (CLI) | payer OTHER, SELFPAY ==
[2020-10-30] MEDS: COVID-19 VACC #1, MRNA(MOD) 100 MCG/0.5 ML VIAL IM (12:27)
== END ==
PROVIDERS: PCP Family Medicine; Visit Provider Internal Medicine
DX: Z23 Encounter for immunization (principal)
CPT/HCPCS: 0011A; 91301

== ENCOUNTER → 2020-11-27 12:17 | Outpatient (CLI) | payer OTHER, SELFPAY ==
[2020-11-27] MEDS: COVID-19 VACC #2, MRNA(MOD) 100 MCG/0.5 ML VIAL IM (12:22)
== END ==
PROVIDERS: PCP Family Medicine; Visit Provider Internal Medicine
DX: Z23 Encounter for immunization (principal)
CPT/HCPCS: 0012A; 91301

== ENCOUNTER → 2021-01-01 16:31 | Outpatient (CLI) | payer OTHER, SELFPAY ==
--- NOTE | 2021-01-01 16:36 | DI.RAD.S_ITS ---
PROCEDURE: XR CERVICAL SPINE 2V OR 3V INDICATIONS: pain TECHNIQUE: 3 view(s) of the cervical spine were acquired. COMPARISON: [facility], CT, CT HEAD/BRAIN WO CON, 12/18/2019, 20:07. FINDINGS: Bones: No fractures or dislocations to the C7 level. Rlry-xo-yqacvgwm degenerative change. Anterior osteophytes. Loss of intervertebral disc space height at C6-C7. The lateral masses of C1 appear intact on the odontoid view. No suspicious bony lesions. Soft tissues: No prevertebral soft tissue swelling. IMPRESSION: Fohf-bt-bhqrfxcv degenerative change. Dictated by: Romeo Bunn M.D. on 01/01/2021 at 17:22 Approved by: Romeo Bunn M.D. on 01/01/2021 at 17:23
== END ==
PROVIDERS: PCP Family Medicine; Referring Provider Family Medicine; Visit Provider Family Medicine
DX: M54.2 Cervicalgia (principal); E78.2 Mixed hyperlipidemia; I10 Essential (primary) hypertension
CPT/HCPCS: 72040

== ENCOUNTER → 2021-02-25 08:50 | Outpatient (CLI) | payer OTHER, SELFPAY ==
[2021-02-25 10:06] LABS: Add Manual Diff / Slide Review NO; Basophils Absolute Auto 100 /uL (0-100); Eosinophils Absolute Auto 400 /uL (0-450); Eosinophils Percent Auto 6.4 % (2-4); Hematocrit 47.5 % (41-53); Lymphocytes Absolute Auto 2200 /uL (1100-4500); Lymphocytes Percent Auto 32.8 % (25-40); Mean Corpuscular HGB Conc 33.6 % (30-36); Mean Corpuscular Hemoglobin 31.9 PG (26-34); Mean Corpuscular Volume 94.9 fL (80-100); Monocytes Absolute Auto 600 /uL (0-900); Monocytes Percent Auto 9.8 % (3-14); Neutrophils Absolute Auto 3300 /uL (1500-7000); Platelet Count 202 X10^3/uL (150-400); Red Blood Cell Count 5.01 X10^6/uL (4.5-5.9); White Blood Cell Count 6.6 X10^3/uL (4.5-11.0)
[2021-02-25 10:28] LABS: Alanine Aminotransferase 44 IU/L (<50); Albumin 4.2 g/dL (3.5-5.0); Albumin Globulin Ratio 1.4 (1.0-2.8); Alkaline Phosphatase 61 U/L (38-126); Aspartate Aminotransferase 38 IU/L (17-59); BUN Creatinine Ratio 22.8 (6-22); Bilirubin Total 1.2 mg/dL (0.2-1.3); Blood Urea Nitrogen 13 mg/dL (9-20); Calcium 9.6 mg/dL (8.4-10.2); Carbon Dioxide 25 mmol/L (22-32); Chloride 104 mmol/L (98-107); Cholesterol 174 mg/dL (140-199); Estimated Glomerular Filt Rate > 60.0 mL/min (>60); Globulin 3.1 g/dL (1.7-4.1); Glucose 100 mg/dL (80-110); HDL Cholesterol 67 mg/dL (40-60); HEMOLYSIS 17 (0-50); LDL Cholesterol Calculated 77 mg/dL (<100); Potassium 4.6 mmol/L (3.4-5.1); Sodium 136 mmol/L (137-145); Total Protein 7.3 g/dL (6.3-8.2); Triglycerides 149 mg/dL (35-150)
[2021-02-25 10:59] LABS: Prostate Specific Antigen 3.11 ng/mL (0.10-4.00)
== END ==
PROVIDERS: PCP Family Medicine; Referring Provider Family Medicine; Visit Provider Family Medicine
DX: E78.2 Mixed hyperlipidemia (principal); I10 Essential (primary) hypertension
CPT/HCPCS: 36415; 80053; 80061; 84153; 85025

== ENCOUNTER → 2022-02-07 13:00 | Outpatient (CLI) | payer BC, SELFPAY ==
--- NOTE | 2022-02-07 13:02 | DI.MRI.S_ITS ---
PROCEDURE: MR LUMBAR SPINE WO CON INDICATIONS: pain TECHNIQUE: Noncontrast sagittal T1 spin echo and T2 fast echo, sagittal STIR, and T2 fast spin echo through the lumbar spine. In cases with scoliosis, additional coronal T2 fast spin echo may be performed. COMPARISON: None. FINDINGS: Image quality: Excellent. Alignment and Curvature: There is normal bony alignment. Bone Marrow: Marrow is of normal overall signal. No acute vertebral body compression fractures. Spinal Cord: Conus medullaris terminates at the L1 level. Visualized cord demonstrates normal signal and size. Paraspinous Soft Tissues: No paravertebral masses. A probable cyst is present within the upper pole of the left kidney which is incompletely characterized. T12-L1: Normal appearance. L1-L2: Normal appearance. L2-L3: Broad-based disc bulge. Mild bilateral foraminal stenosis. No canal stenosis. L3-L4: Mild disc desiccation and height loss. Broad-based disc bulge. Mild facet and ligamentum flavum hypertrophy. No canal stenosis. Moderate bilateral foraminal narrowing. L4-L5: Broad-based disc bulge. Mild facet and ligamentum flavum hypertrophy. Mild canal stenosis. Moderate bilateral neural foraminal stenosis. L5-S1: Broad-based disc bulge. Severe facet sclerosis. No canal stenosis. Moderate right and severe left neural foraminal stenosis. There is a small posterior focal high-intensity zone. IMPRESSION: 1. Mild canal stenosis at L4-5 secondary to broad-based disc bulge and facet and ligamentum flavum hypertrophy. No other canal stenosis lumbar spine. 2. Severe left neural foraminal stenosis at L5-S1. Moderate right foraminal narrowing at L5-S1 and moderate bilateral foraminal stenosis at L3-4 and L4-5. 3. 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 Dictated by: Elizabeth Bronson M.D. on 02/09/2022 at 14:58 Approved by: Elizabeth Bronson M.D. on 02/09/2022 at 15:04
== END ==
PROVIDERS: PCP Family Medicine; Referring Provider Family Medicine; Visit Provider Family Medicine
DX: M51.16 Intervertebral disc disorders with radiculopathy, lumbar region (principal); M48.061 Spinal stenosis, lumbar region without neurogenic claudication; M48.07 Spinal stenosis, lumbosacral region; G89.29 Other chronic pain; Z86.018 Personal history of other benign neoplasm
CPT/HCPCS: 72148

== ENCOUNTER → 2022-03-14 09:33 | Outpatient (CLI) | payer BC, SELFPAY ==
[2022-03-14 11:42] LABS: Add Manual Diff / Slide Review NO; Basophils Absolute Auto 100 /uL (0-100); Basophils Percent Auto 1.5 % (0-2); Eosinophils Absolute Auto 400 /uL (0-450); Eosinophils Percent Auto 7.3 % (2-4); Lymphocytes Absolute Auto 1900 /uL (1100-4500); Lymphocytes Percent Auto 33.4 % (25-40); Mean Corpuscular Hemoglobin 31.5 PG (26-34); Mean Corpuscular Volume 92.6 fL (80-100); Monocytes Absolute Auto 500 /uL (0-900); Monocytes Percent Auto 8.9 % (3-14); Neutrophils Absolute Auto 2800 /uL (1500-7000); Neutrophils Percent Auto 48.9 % (50-75); Platelet Count 206 X10^3/uL (150-400); Red Blood Cell Count 5.08 X10^6/uL (4.5-5.9); Red Cell Distribution Width 13.3 % (11.6-14.8); White Blood Cell Count 5.7 X10^3/uL (4.5-11.0)
[2022-03-14 11:57] LABS: Alanine Aminotransferase 49 IU/L (<50); Albumin 4.5 g/dL (3.5-5.0); Albumin Globulin Ratio 1.5 (1.0-2.8); Alkaline Phosphatase 62 U/L (38-126); Aspartate Aminotransferase 31 IU/L (17-59); Bilirubin Total 0.8 mg/dL (0.2-1.3); Blood Urea Nitrogen 14 mg/dL (9-20); Calcium 9.2 mg/dL (8.4-10.2); Carbon Dioxide 28 mmol/L (22-32); Chloride 106 mmol/L (98-107); Cholesterol 165 mg/dL (140-199); Estimated Glomerular Filt Rate > 60 mL/min (>60); Glucose 105 mg/dL (80-110); HDL Cholesterol 53 mg/dL (40-60); HEMOLYSIS < 15 (0-50); LDL Cholesterol Calculated 90 mg/dL (<100); Potassium 4.7 mmol/L (3.4-5.1); Sodium 140 mmol/L (137-145); Total Protein 7.5 g/dL (6.3-8.2); Triglycerides 112 mg/dL (35-150)
[2022-03-14 11:59] LABS: Hemoglobin A1C% w Est Avg Glu 5.8 % (4.0-6.0)
[2022-03-14 12:28] LABS: Prostate Specific Antigen Scrn 2.55 ng/mL (0.1-4.0)
== END ==
PROVIDERS: PCP Family Medicine; Referring Provider Family Medicine; Visit Provider Family Medicine
DX: E78.2 Mixed hyperlipidemia (principal); I10 Essential (primary) hypertension; Z12.5 Encounter for screening for malignant neoplasm of prostate
CPT/HCPCS: 36415; 80053; 80061; 83036; 85025; G0103

== ENCOUNTER 2023-03-23 09:21 | Emergency (ER) | payer BC, SELFPAY ==
[2023-03-23] VITALS (21 sets, daily range): BP systolic 118–172; BP diastolic 70–112; PULSE 67–171; RESP 10–22; TEMP 36.7; O2SAT 94–100; BMI 25.7
--- NOTE | 2023-03-23 09:30 | DI.RAD.S_ITS ---
PROCEDURE: XR CHEST 1V INDICATIONS: chest pain TECHNIQUE: One view of the chest was acquired. COMPARISON: [facility], [place], XR CHEST 1V, 02/19/2018, 13:50. [facility], , CHEST 2 VIEW, 09/10/2016, 9:39. FINDINGS: Surgical changes and devices: None. Lungs and pleura: Possible mild opacity at the left lung base. No dense consolidation elsewhere or pleural effusion. Mediastinum: There is a left hilar mass. Bones and chest wall: Degenerative changes. IMPRESSION: Left hilar mass. CT is pending. Dictated by: Juan Alexis M.D. on 03/23/2023 at 10:31 Approved by: Juan Alexis M.D. on 03/23/2023 at 10:32
[2023-03-23 09:41] LABS: Add Manual Diff / Slide Review NO; Basophils Absolute Auto 0 /uL (0-100); Basophils Percent Auto 0.2 % (0-2); Eosinophils Absolute Auto 0 /uL (0-450); Hematocrit 42.8 % (41-53); Hemoglobin 14.2 g/dL (13.5-17.5); Lymphocytes Absolute Auto 800 /uL (1100-4500); Lymphocytes Percent Auto 7.1 % (25-40); Mean Corpuscular HGB Conc 33.3 % (30-36); Mean Corpuscular Hemoglobin 31.4 PG (26-34); Mean Corpuscular Volume 94.5 fL (80-100); Monocytes Absolute Auto 1100 /uL (0-900); Neutrophils Absolute Auto 9800 /uL (1500-7000); Neutrophils Percent Auto 83.7 % (50-75); Platelet Count 223 X10^3/uL (150-400); Red Blood Cell Count 4.53 X10^6/uL (4.5-5.9); Red Cell Distribution Width 13.7 % (11.6-14.8); White Blood Cell Count 11.7 X10^3/uL (4.5-11.0)
[2023-03-23] MEDS: ASPIRIN 81 MG CHEW TAB 324 MG PO (09:41)
[2023-03-23] MEDS: dilTIAZem 5 MG/ML SDV 10 MG IV (09:41)
[2023-03-23 09:50] LABS: INR 0.9 (0.9-1.3); Prothrombin Time 10.6 SECONDS (10.1-12.7)
[2023-03-23 09:52] LABS: PTT Partial Thromboplastin Tim 23 SECONDS (26-36)
[2023-03-23] MEDS: dilTIAZem 5 MG/ML SDV 20 MG IV (09:52)
--- NOTE | 2023-03-23 09:53 | ED.ARRPALP ---
HPI - Arrhythmia/Palpitations General Chief Complaint: Arrhythmia/Palpitations Stated Complaint: High Pulse, 166-170 sent by PCP Time Seen by Provider: 03/23/23 09:33 Source: patient Mode of arrival: Ambulatory History of Present Illness HPI narrative: Patient is a 68-year-old male with history of hyperlipidemia, hypertension, tobacco abuse reports of cardiac arrhythmia but patient denies presenting today with elevated heart rate. He reports that for the last few days he has been checking blood pressure and heart rate daily and recording it Heart rate has been in the 170s consistently for 4 days. He denies any palpitations chest pain or shortness of breath. He has had some hoarseness but overall feels well denies any fever chills or cough. He reports being a daily smoker for multiple years. Records do not report what cardiac arrhythmia he has had. Related Data Previous Rx's Medication Instructions Recorded ketoconazole 2 % topical cream 1 applictn topical BID PRN Itching 01/16/20 #15 grams sildenafil 100 mg tablet (Viagra) 100 mg PO QDAY PRN Erectile 01/16/20 Dysfunction #10 tabs prednisone 10 mg tablet See Rx Instructions PO DIRECTED 11/04/22 #30 tabs amlodipine 5 mg tablet 5 mg PO DAILY #90 tabs 03/09/23 atorvastatin 20 mg tablet 20 mg PO BEDTIME #90 tabs 03/09/23 lisinopril 20 mg tablet 20 mg PO BID #180 tabs 03/09/23 metoprolol succinate 25 mg capsule 25 mg PO DAILY #30 ea 03/23/23 sprinkle, ext. release 24 hr metoprolol succinate 50 mg 50 mg PO DAILY #30 tabs 03/23/23 tablet,extended release 24 hr Allergies Allergy/AdvReac Type Severity Reaction Status Date / Time azithromycin Allergy Mild Hives Verified 03/23/23 09:31 Review of Systems Review of Systems ROS Unobtainable: All systems reviewed & are unremarkable except as noted in HPI and below Patient History Medical History Acute neck pain Acute pain of left shoulder Allergic rash present on examination Chronic low back pain with bilateral sciatica Hearing deficit Hx of benign neoplasm of spinal cord Hyperlipidemia Hypertension Rash and nonspecific skin eruption Vision disorder Surgical History Anesthesia Family History Father No problems noted. Mother Cancer Social History marital status: household members: spouse Smoking Status: Current every day smoker during the past year weight has: remained stable well-balanced diet: daily or most days daily servings fruits/ve-4 caffeine: Yes eating out: rarely or never Type(s) of exercise: walking and other frequency: 1-2 times per week duration: 30-45 minutes/day Smoking Status: Current every day smoker alcohol intake frequency: 3 or more drinks per day Substance Use Type: marijuana Exam Initial Vital Signs Initial Vital Signs: Vital Signs Temperature 98.0 F 03/23/23 09:22 Pulse Rate 170 H 03/23/23 09:22 Respiratory Rate 19 03/23/23 09:22 Blood Pressure 172/111 H 03/23/23 09:22 Pulse Oximetry 100 03/23/23 09:22 Oxygen Delivery Method Room Air 03/23/23 09:22 GENERAL: Alert very pleasant well-appearing 68-year-old male and in no acute distress. HEENT: Head atraumatic,EOMI, pupils reactive, face symmetric, moist mucous membranes CARDIOVASCULAR: Regular tachycardic no murmur RESPIRATORY: Breath sounds equal bilaterally, no wheezes rales or rhonchi. ABDOMEN: Soft, nontender. Normoactive bowel sounds all 4 quadrants. No guarding or rebound. EXTREMITIES: Normal range of motion, no clubbing or edema. Neurovascularly intact NEUROLOGICAL: Alert and oriented x4. SKIN: Warm, dry, no laceration, no petechiae, no rashes or lesions. Course Orders Ordered: ED Orders 03/23/23 13:33 Consult to [facility] [place] - [place] Stat Discontinued Medications Aspirin (Aspirin 81 Mg Chew Tab) 324 mg PO NOW ONE Stop: 03/23/23 09:31 Last Admin: 03/23/23 09:41 Dose: 324 mg Documented By: MAURICE Diltiazem HCl (Diltiazem 5 Mg/Ml Sdv) 10 mg IV NOW ONE Stop: 03/23/23 09:34 Last Admin: 03/23/23 09:41 Dose: 10 mg Documented By: MAURICE Diltiazem HCl (Diltiazem 5 Mg/Ml Sdv) 20 mg IV NOW ONE Stop: 03/23/23 09:49 Last Admin: 03/23/23 09:52 Dose: 20 mg Documented By: MAURICE Sodium Chloride (Normal Saline 0.9%) 1,000 mls @ 1,000 mls/hr IV BOLUS ONE Stop: 03/23/23 11:22 Last Infusion: 03/23/23 11:42 Dose: 0 mls/hr Documented By: Admin: 03/23/23 10:32 Dose: 1,000 mls/hr Documented By: MAURICE Metoprolol Tartrate (Metoprolol Tartrate 5 Mg/5 Ml Inj) 5 mg IV NOW ONE Stop: 03/23/23 10:16 Last Admin: 03/23/23 10:21 Dose: 5 mg Documented By: MAURICE Metoprolol Tartrate (Metoprolol Ir 25 Mg Tablet) 25 mg PO NOW ONE Stop: 03/23/23 10:39 Last Admin: 03/23/23 11:02 Dose: 25 mg Documented By: MAURICE Vital Signs Vital signs: Vital Signs - 8 hr 03/23/23 11:30 03/23/23 11:30 03/23/23 12:00 Pulse Rate 69 Respiratory Rate 17 Blood Pressure 130/80 145/85 H Pulse Oximetry 95 03/23/23 12:00 03/23/23 12:30 03/23/23 12:30 Pulse Rate 67 67 Respiratory Rate 14 14 Blood Pressure 134/81 Pulse Oximetry 96 95 03/23/23 13:00 03/23/23 13:00 03/23/23 13:30 Pulse Rate 75 Respiratory Rate 22 Blood Pressure 143/83 H 142/70 H Pulse Oximetry 95 03/23/23 13:30 03/23/23 14:00 03/23/23 14:00 Pulse Rate 79 81 Respiratory Rate 20 21 Blood Pressure 152/74 H Pulse Oximetry 94 95 03/23/23 14:30 03/23/23 14:30 03/23/23 15:00 Pulse Rate 78 Respiratory Rate 18 Blood Pressure 148/79 H 152/79 H Pulse Oximetry 95 03/23/23 15:00 Pulse Rate 82 Respiratory Rate 21 Blood Pressure Pulse Oximetry 95 MDM - Arrhythmia/Palpitations Lab Data 03/23/23 09:30 03/23/23 09:30 Labs: Lab Results 03/23/23 03/23/23 03/23/23 Range/Units 09:30 09:30 09:30 WBC 11.7 H (4.5-11.0) X10^3/uL RBC 4.53 (4.5-5.9) X10^6/uL Hgb 14.2 (13.5-17.5) g/dL Hct 42.8 (41-53) % MCV 94.5 (80-100) fL MCH 31.4 (26-34) PG MCHC 33.3 (30-36) % RDW 13.7 (11.6-14.8) % Plt Count 223 (150-400) X10^3/uL Neut % (Auto) 83.7 H (50-75) % Lymph % (Auto) 7.1 L (25-40) % Sawyer % (Auto) 9.0 (3-14) % Eos % (Auto) 0.0 L (2-4) % Baso % (Auto) 0.2 (0-2) % Neut # (Auto) 9800 H (9647-9253) /uL Lymph # (Auto) 800 L (0977-2999) /uL Sawyer # (Auto) 1100 H (0-900) /uL Eos # (Auto) 0 (0-450) /uL Baso # (Auto) 0 (0-100) /uL PT 10.6 (10.1-12.7) SECONDS INR 0.9 (0.9-1.3) APTT 23 L (26-36) SECONDS Sodium 135 L (137-145) mmol/L Potassium 3.8 (3.4-5.1) mmol/L Chloride 103 (98-107) mmol/L Carbon Dioxide 26 (22-32) mmol/L BUN 23 H (9-20) mg/dL Creatinine 0.67 (0.66-1.25) mg/dL Estimated GFR > 60 (>60) mL/min BUN/Creatinine Ratio 34.3 H (6-22) Glucose 181 H (80-110) mg/dL Calcium 8.9 (8.4-10.2) mg/dL Magnesium 2.4 H (1.6-2.3) mg/dL Total Bilirubin 1.3 (0.2-1.3) mg/dL AST 204 H (17-59) IU/L ALT 274 H (<50) IU/L Alkaline Phosphatase 303 H (38-126) U/L Total Creatine Kinase 254 H (55-170) U/L Troponin I 0.019 (0.01-0.034) ng/mL NT-Pro-B Natriuret Pep (<125) pg/mL Total Protein 7.1 (6.3-8.2) g/dL Albumin 4.0 (3.5-5.0) g/dL Globulin 3.1 (1.7-4.1) g/dL Albumin/Globulin Ratio 1.3 (1.0-2.8) Lipase 176 (23-300) U/L 03/23/23 Range/Units 09:30 WBC (4.5-11.0) X10^3/uL RBC (4.5-5.9) X10^6/uL Hgb (13.5-17.5) g/dL Hct (41-53) % MCV (80-100) fL MCH (26-34) PG MCHC (30-36) % RDW (11.6-14.8) % Plt Count (150-400) X10^3/uL Neut % (Auto) (50-75) % Lymph % (Auto) (25-40) % Sawyer % (Auto) (3-14) % Eos % (Auto) (2-4) % Baso % (Auto) (0-2) % Neut # (Auto) (9027-2737) /uL Lymph # (Auto) (4522-8455) /uL Sawyer # (Auto) (0-900) /uL Eos # (Auto) (0-450) /uL Baso # (Auto) (0-100) /uL PT (10.1-12.7) SECONDS INR (0.9-1.3) APTT (26-36) SECONDS Sodium (137-145) mmol/L Potassium (3.4-5.1) mmol/L Chloride (98-107) mmol/L Carbon Dioxide (22-32) mmol/L BUN (9-20) mg/dL Creatinine (0.66-1.25) mg/dL Estimated GFR (>60) mL/min BUN/Creatinine Ratio (6-22) Glucose (80-110) mg/dL Calcium (8.4-10.2) mg/dL Magnesium (1.6-2.3) mg/dL Total Bilirubin (0.2-1.3) mg/dL AST (17-59) IU/L ALT (<50) IU/L Alkaline Phosphatase (38-126) U/L Total Creatine Kinase (55-170) U/L Troponin I (0.01-0.034) ng/mL NT-Pro-B Natriuret Pep 3850 H (<125) pg/mL Total Protein (6.3-8.2) g/dL Albumin (3.5-5.0) g/dL Globulin (1.7-4.1) g/dL Albumin/Globulin Ratio (1.0-2.8) Lipase (23-300) U/L Imaging Data Chest x-ray: My Impression: Cardiomegaly with widened mediastinum Radiologist's Impresson: PROCEDURE:? XR CHEST 1V ? INDICATIONS:? chest pain ? TECHNIQUE:? One view of the chest was acquired.? ? COMPARISON:? [facility], , XR CHEST 1V, 02/19/2018, 13:50.? [facility], , CHEST 2 VIEW, 09/10/2016, 9:39. ? FINDINGS:? ? Surgical changes and devices:? None.? ? Lungs and pleura:? Possible mild opacity at the left lung base.? No dense consolidation elsewhere or pleural effusion. ? Mediastinum:? There is a left hilar mass. ? Bones and chest wall:? Degenerative changes. ? IMPRESSION:? Left hilar mass.? CT is pending. ? ? Dictated by: Juan Alexis M.D. on 03/23/2023 at 10:31 ? ? Approved by: Juan Alexis M.D. on 03/23/2023 at 10:32 ? CT scan - chest: Radiologist's Impresson: PROCEDURE:? CT ANGIO CHEST ABDOMEN PELVIS ? INDICATIONS:? new a fib widen mediastinum ? TECHNIQUE:? Precontrast 5 mm thick sections acquired from the lung apices to the iliac crests.? After the administration of intravenous contrast, 2.5 mm thick sections again acquired from the lung apices to the iliac crests.? Maximum intensity projection (MIP) oblique sagittal and coronal reformats were then acquired.? For radiation dose reduction, the following was used:? automated exposure control.? ? COMPARISON:? [facility], CT, CT ANGIO CHEST PE PROTOCOL, 02/19/2018, 15:10. ? FINDINGS:? Image quality:? Good ? Lungs and pleura:? There is a small left pleural effusion.? Left basal atelectasis and mild airspace disease.? There is septal thickening at the left apex. ? New left hilar mass encasing the left hilar structures, including the left superior pulmonary vein, pulmonary artery branches, and airway.? On a single axial slice, this measures 9.8 x 8.3 centimeters (). ? Smaller pulmonary nodules are present, for example in the left upper lobe (, and in the right periphery (). ? Mediastinum, heart, and esophagus:? Atherosclerotic mild calcifications.? No dissection or central pulmonary embolism.? No intramural hematoma.? Mediastinal napoleon disease, for example left paratracheal node measures 2 centimeters in short axis ().? No hiatal hernia. ? Chest wall and thyroid:? Right supraclavicular napoleon disease measures 1.1 centimeters in short axis. ? Solid organs:? The liver appears heterogeneous, but is not well evaluated on noncontrast on arterial phase imaging. No pathologic biliary ductal dilation or pancreatic ductal dilation.? No splenomegaly.? No discrete adrenal nodule.? No hydronephrosis. ? Vessels and lymph nodes:? Atherosclerotic calcifications.? No aneurysmal vessel.? No pathologic lymph nodes identified in the retroperitoneum.? There is a borderline enlarged lymph node in the left external iliac chain (/275) measuring 0.9 centimeters in short axis. No aortic dissection in the abdomen. ? Bowel and peritoneum:? No evidence of small bowel obstruction, drainable abscess, or pathologic ascites.? There are colonic diverticula.? Normal appendix. ? Body wall:? Small fat containing inguinal hernias.? There is also a small umbilical hernia containing fat and a portion of bowel wall (Yoo's hernia). ? Pelvis:? Bladder is unremarkable.? Prostate not well evaluated on this study. ? Bones:? Heterogeneous appearance of the bones, at least partially senescent, but there may be small focal lesions, for example in the right posterior iliac bone measuring 1.2 centimeters (/260).? There also degenerative changes.? A lucent lesion is seen in the T7 vertebral body. ? ? IMPRESSION:? 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 ? Possible distant napoleon metastases (left external iliac, right supraclavicular).? Heterogeneous bones and liver, also possible metastases. ? Possible malignant left pleural effusion.? This could be correlated with cytology. ? Recommend PET-CT follow-up.? This arterial phase CT is suboptimal for oncologic staging. ? Other incidental findings above. ? ? Dictated by: Juan Alexis M.D. on 03/23/2023 at 10:32 ? ? ECG Data Interpretation: Atrial flutter with two-to-one block rate [address] changes previous EKG in 2018 shows a normal sinus rhythm MDM Narrative Medical decision making narrative: Patient 68-year-old with new onset atrial flutter 2-1 block heart rate in the 170s. He did not respond at all to diltiazem but did respond and actually eventually cardioverted with metoprolol. He is given 1 dose of oral metoprolol. X-ray does show large mass in the left hilar region. CT does confirm large mass with probable metastatic involvement in lymph nodes. Oncology recommends having PCP put a referral in it will need a biopsy before any further treatment or recommendations can be may eat. Dr. García updated on patient's symptoms test results. Dr. Schumacher is not available he is off today. She will give the patient information to PCP. We agree with no anticoagulation for the Eliquis at this time. Does need a biopsy try and make arrangements for that. Discharge Plan Departure Patient Disposition: Home Clinical Impression: Lung mass, Atrial flutter Instructions: DI for Atrial Flutter, DI for Needle Biopsy of the Lung and Pleura, DI for Lung Cancer Activity Restrictions/Additional Instructions: *You have been diagnosed with lung mass, atrial flutter *What to do: At this time I am trying to get hold of PCP so that you can have a referral in to Oncology. He will need a needle biopsy. *Continue to take medications as directed Metoprolol 25 mg daily --> sent to [facility] *Follow up with your primary care provider in 2-3 days or call [phone] *Return to ER if you should have chest pain palpitations shortness of breath or any new, worsening or concerning symptoms Prescriptions: New metoprolol succinate 50 mg tablet extended release 24 hr 50 mg PO DAILY Qty: 30 0RF metoprolol succinate 25 mg capsule,sprinkle,ER 24hr 25 mg PO DAILY Qty: 30 0RF No Action atorvastatin 20 mg tablet 20 mg PO BEDTIME Qty: 90 1RF lisinopril 20 mg tablet 20 mg PO BID Qty: 180 1RF amlodipine 5 mg tablet 5 mg PO DAILY Qty: 90 1RF ketoconazole 2 % cream 1 applictn TOP BID PRN (Reason: Itching) Qty: 15 5RF sildenafil [Viagra] 100 mg tablet 100 mg PO QDAY PRN (Reason: Erectile Dysfunction) Qty: 10 5RF prednisone 10 mg tablet See Rx Instructions PO DIRECTED Qty: 30 0RF Rx Instructions: orally as directed; 40mg daily for three days, 30mg for 3 days, 20mg for 3 days, 10mg for 3 days Referrals: Lawson Tyler DO [Primary Care Provider] - Stand Alone Forms: Patient Portal/API
[2023-03-23 09:55] LABS: Alanine Aminotransferase 274 IU/L (<50); Albumin Globulin Ratio 1.3 (1.0-2.8); Alkaline Phosphatase 303 U/L (38-126); Aspartate Aminotransferase 204 IU/L (17-59); BUN Creatinine Ratio 34.3 (6-22); Bilirubin Total 1.3 mg/dL (0.2-1.3); Blood Urea Nitrogen 23 mg/dL (9-20); Calcium 8.9 mg/dL (8.4-10.2); Carbon Dioxide 26 mmol/L (22-32); Chloride 103 mmol/L (98-107); Creatine Kinase 254 U/L (55-170); Estimated Glomerular Filt Rate > 60 mL/min (>60); Globulin 3.1 g/dL (1.7-4.1); Glucose 181 mg/dL (80-110); HEMOLYSIS 16 (0-50); Lipase 176 U/L (23-300); Magnesium 2.4 mg/dL (1.6-2.3); Potassium 3.8 mmol/L (3.4-5.1); Sodium 135 mmol/L (137-145); Total Protein 7.1 g/dL (6.3-8.2)
--- NOTE | 2023-03-23 10:02 | DI.CT.S_ITS ---
PROCEDURE: CT ANGIO CHEST ABDOMEN PELVIS INDICATIONS: new a fib widen mediastinum TECHNIQUE: Precontrast 5 mm thick sections acquired from the lung apices to the iliac crests. After the administration of intravenous contrast, 2.5 mm thick sections again acquired from the lung apices to the iliac crests. Maximum intensity projection (MIP) oblique sagittal and coronal reformats were then acquired. For radiation dose reduction, the following was used: automated exposure control. COMPARISON: [facility], CT, CT ANGIO CHEST PE PROTOCOL, 02/19/2018, 15:10. FINDINGS: Image quality: Good Lungs and pleura: There is a small left pleural effusion. Left basal atelectasis and mild airspace disease. There is septal thickening at the left apex. New left hilar mass encasing the left hilar structures, including the left superior pulmonary vein, pulmonary artery branches, and airway. On a single axial slice, this measures 9.8 x 8.3 centimeters (5/66). Smaller pulmonary nodules are present, for example in the left upper lobe (11/38, and in the right periphery (11/74). Mediastinum, heart, and esophagus: Atherosclerotic mild calcifications. No dissection or central pulmonary embolism. No intramural hematoma. Mediastinal napoleon disease, for example left paratracheal node measures 2 centimeters in short axis (5/68). No hiatal hernia. Chest wall and thyroid: Right supraclavicular napoleon disease measures 1.1 centimeters in short axis. Solid organs: The liver appears heterogeneous, but is not well evaluated on noncontrast on arterial phase imaging. No pathologic biliary ductal dilation or pancreatic ductal dilation. No splenomegaly. No discrete adrenal nodule. No hydronephrosis. Vessels and lymph nodes: Atherosclerotic calcifications. No aneurysmal vessel. No pathologic lymph nodes identified in the retroperitoneum. There is a borderline enlarged lymph node in the left external iliac chain (5/275) measuring 0.9 centimeters in short axis. No aortic dissection in the abdomen. Bowel and peritoneum: No evidence of small bowel obstruction, drainable abscess, or pathologic ascites. There are colonic diverticula. Normal appendix. Body wall: Small fat containing inguinal hernias. There is also a small umbilical hernia containing fat and a portion of bowel wall (Yoo's hernia). Pelvis: Bladder is unremarkable. Prostate not well evaluated on this study. Bones: Heterogeneous appearance of the bones, at least partially senescent, but there may be small focal lesions, for example in the right posterior iliac bone measuring 1.2 centimeters (5/260). There also degenerative changes. A lucent lesion is seen in the T7 vertebral body. 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 Possible distant napoleon metastases (left external iliac, right supraclavicular). Heterogeneous bones and liver, also possible metastases. Possible malignant left pleural effusion. This could be correlated with cytology. Recommend PET-CT follow-up. This arterial phase CT is suboptimal for oncologic staging. Other incidental findings above. Dictated by: Juan Alexis M.D. on 03/23/2023 at 10:32 Approved by: Juan Alexis M.D. on 03/23/2023 at 10:44
[2023-03-23 10:03] LABS: NT-proBNP (BNP-Adult 18+) 3850 pg/mL (<125)
[2023-03-23 10:07] LABS: Troponin I 0.019 ng/mL (0.01-0.034)
[2023-03-23] MEDS: METOPROLOL TARTRATE 5 MG/5 ML INJ IV (10:21)
[2023-03-23] MEDS: SODIUM CHLORIDE 0.9% 1,000 ML 1000 ML IV (10:32)
--- NOTE | 2023-03-23 10:33 | PC.NURSE ---
patient heart rate dropped into 80's after IV metoprolol, repeat EKG obtained. patient denies any changes, does not feel changes in heart rate. Denies chest pain or SOB
[2023-03-23] MEDS: METOPROLOL IR 25 MG TABLET PO (11:02)
== END 2023-03-23 15:24 | disposition home or self-care (01) ==
PROVIDERS: Emergency Provider Emergency Medicine; PCP Family Medicine
DX: I48.92 Unspecified atrial flutter (principal); R91.8 Other nonspecific abnormal finding of lung field; R07.9 Chest pain, unspecified; R79.89 Other specified abnormal findings of blood chemistry; Z79.899 Other long term (current) drug therapy
CPT/HCPCS: 36415; 71045; 71275; 74174; 80053; 82550; 83690; 83735; 83880; 84484; 85025; 85610; 85730; 93005; 96361; 96374; 96375; 99284; 99285

== ENCOUNTER 2023-03-24 10:05 | Emergency (ER) | payer BC, SELFPAY ==
[2023-03-24] VITALS (15 sets, daily range): BP systolic 123–163; BP diastolic 71–94; PULSE 79–187; RESP 15–24; TEMP 36.7; O2SAT 93–96
--- NOTE | 2023-03-24 10:18 | DI.RAD.S_ITS ---
PROCEDURE: XR CHEST 1V INDICATIONS: chest pain TECHNIQUE: One view of the chest was acquired. COMPARISON: [facility], CT, CT ANGIO CHEST ABDOMEN PELVIS, 03/23/2023, 10:09. [facility], CR, XR CHEST 1V, 03/23/2023, 9:41. FINDINGS: Surgical changes and devices: None. Lungs and pleura: Large left mediastinal/chest mass, as before. There is associated left basilar volume loss, which has occurred since the previous study, possibly representing bronchial obstruction secondary to mass. Question small left pleural effusion. Mediastinum: Mediastinal contours appear normal. Heart size is normal. Bones and chest wall: No suspicious bony lesions. Overlying soft tissues appear unremarkable. IMPRESSION: 1. Large left chest/mediastinal mass, as before. 2. There is now atelectasis in the left lung base, possibly postobstructive. Dictated by: Jersey Nava M.D. on 03/24/2023 at 11:37 Approved by: Jersey Nava M.D. on 03/24/2023 at 11:39
--- NOTE | 2023-03-24 10:19 | ED.ARRPALP ---
HPI - Arrhythmia/Palpitations General Chief Complaint: Arrhythmia/Palpitations Stated Complaint: pulse up175 from yesterday-was in ED again Time Seen by Provider: 03/24/23 10:07 History of Present Illness HPI narrative: 68-year-old male with history of hyperlipidemia, hypertension and tobacco use returns for the 2nd time as many days for elevated heart rate. He is asymptomatic and states he has no chest pain or shortness of breath, he is not dizzy nor weak lightheaded. He was seen and evaluated yesterday for the same and had no response to Cardizem, he was then given metoprolol through the IV which converted him to a normal sinus rhythm and he was discharged home on metoprolol which he has taken. 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 He presents today with a recurrence of elevated heart rate, again asymptomatic. Related Data Previous Rx's Medication Instructions Recorded ketoconazole 2 % topical cream 1 applictn topical BID PRN Itching 01/16/20 #15 grams sildenafil 100 mg tablet (Viagra) 100 mg PO QDAY PRN Erectile 01/16/20 Dysfunction #10 tabs prednisone 10 mg tablet See Rx Instructions PO DIRECTED 11/04/22 #30 tabs amlodipine 5 mg tablet 5 mg PO DAILY #90 tabs 03/09/23 atorvastatin 20 mg tablet 20 mg PO BEDTIME #90 tabs 03/09/23 lisinopril 20 mg tablet 20 mg PO BID #180 tabs 03/09/23 metoprolol succinate 25 mg capsule 25 mg PO DAILY #30 ea 03/23/23 sprinkle, ext. release 24 hr metoprolol succinate 50 mg 50 mg PO DAILY #30 tabs 03/23/23 tablet,extended release 24 hr apixaban 5 mg tablet (Eliquis) 5 mg PO BID #60 tabs 03/24/23 potassium chloride 20 mEq 20 meq PO DAILY #30 tabs 03/24/23 tablet,extended release(part/cryst) Allergies Allergy/AdvReac Type Severity Reaction Status Date / Time azithromycin Allergy Mild Hives Verified 03/23/23 09:31 Review of Systems Review of Systems Narrative: GENERAL: Denies chills, fatigue, malaise, fever, sweats. HEENT: Denies sinus pain, ear pain, sore throat, difficulty swallowing, dizziness. RESPIRATORY: Denies dyspnea, cough, wheezing, hemoptysis, sputum. CARDIOVASCULAR: See HPI GASTROINTESTINAL: Denies nausea, vomiting, abdominal pain, diarrhea, constipation, melena. : Denies dysuria, frequency, incontinence, hematuria, urinary retention. MUSCULOSKELETAL: denies weakness, joint pain, or bony pain SKIN: Denies rash, skin lesions, or other NEUROLOGIC: Denies weakness, headache, numbness, change in speech, confusion, seizures, incoordination. PSYCHIATRIC: No concerning psychosocial issues. 12 point review of systems is negative except for those stated above Patient History Medical History Acute neck pain Acute pain of left shoulder Allergic rash present on examination Chronic low back pain with bilateral sciatica Hearing deficit Hx of benign neoplasm of spinal cord Hyperlipidemia Hypertension Rash and nonspecific skin eruption Vision disorder Surgical History Anesthesia Family History Father No problems noted. Mother Cancer Social History marital status: household members: spouse Smoking Status: Current every day smoker during the past year weight has: remained stable well-balanced diet: daily or most days daily servings fruits/ve-4 caffeine: Yes eating out: rarely or never Type(s) of exercise: walking and other frequency: 1-2 times per week duration: 30-45 minutes/day Smoking Status: Current every day smoker alcohol intake frequency: 3 or more drinks per day Substance Use Type: marijuana Exam Narrative Exam Narrative: GENERAL: [68] year old patient appears stated age. Well-developed patient, in mild distress. HEAD: Atraumatic. Normocephalic. EYES: Pupils equal round and reactive. Extraocular motions intact. No scleral icterus. No injection or drainage. ENT: Nose without bleeding, purulent drainage. Throat without erythema, tonsillar hypertrophy or exudate. Airway patent. NECK: Trachea midline. Non tender CARDIOVASCULAR: Tachycardic but regular rhythm without murmurs, gallops, or rubs. RESPIRATORY: Clear to auscultation. Breath sounds equal bilaterally. No wheezes, rales, or rhonchi. GASTROINTESTINAL: Abdomen soft, non-tender, nondistended. EXTREMITIES: No edema or joint tenderness. BACK: Nontender without deformity or crepitance. No flank tenderness. NEURO: AOx3. SKIN: No rash or erythema of visible areas Initial Vital Signs Initial Vital Signs: Vital Signs Temperature 98.1 F 03/24/23 10:10 Pulse Rate 175 H 03/24/23 10:10 Respiratory Rate 16 03/24/23 10:10 Blood Pressure 141/94 H 03/24/23 10:10 Pulse Oximetry 96 03/24/23 10:10 Oxygen Delivery Method Room Air 03/24/23 10:10 Course Orders Ordered: Discontinued Medications Aspirin (Aspirin 81 Mg Chew Tab) 324 mg PO NOW ONE Stop: 03/24/23 10:19 Last Admin: 03/24/23 10:35 Dose: 324 mg Documented By: MAURICE Metoprolol Tartrate (Metoprolol Tartrate 5 Mg/5 Ml Inj) 5 mg IV NOW ONE Stop: 03/24/23 10:25 Last Admin: 03/24/23 10:35 Dose: 5 mg Documented By: MAURICE Metoprolol Tartrate (Metoprolol Tartrate 5 Mg/5 Ml Inj) 5 mg IV NOW ONE Stop: 03/24/23 11:30 Last Admin: 03/24/23 11:39 Dose: 5 mg Documented By: MAURICE Metoprolol Tartrate (Metoprolol Tartrate 5 Mg/5 Ml Inj) 5 mg IV NOW ONE Stop: 03/24/23 12:06 Last Admin: 03/24/23 12:09 Dose: 5 mg Documented By: MAURICE Potassium Chloride (Potassium Chloride 20 Meq/15 Ml Udc) 40 meq PO NOW ONE Stop: 03/24/23 11:30 Last Admin: 03/24/23 11:39 Dose: 40 meq Documented By: MAURICE Reevaluation(s) Reevaluation #1: Metoprolol 5 mg IV given without change in heart rate Consultations Consultation #1: Discussed with on-call Cardiology, recommends a dressing potassium, giving another dose or 2 of IV metoprolol. If this breaks the cycle recommends increasing metoprolol from 25-50 at home and starting on potassium supplementation at 20 mEq Vital Signs Vital signs: Vital Signs - 8 hr 03/24/23 10:10 03/24/23 10:56 03/24/23 11:00 Temperature 98.1 F Pulse Rate 175 H 161 H 183 H Respiratory Rate 16 17 17 Blood Pressure 141/94 H Pulse Oximetry 96 96 96 Oxygen Delivery Method Room Air 03/24/23 11:01 03/24/23 11:01 03/24/23 11:30 Temperature Pulse Rate 183 H Respiratory Rate 16 Blood Pressure 123/82 138/78 Pulse Oximetry 95 Oxygen Delivery Method 03/24/23 11:30 03/24/23 11:30 03/24/23 11:36 Temperature Pulse Rate 179 H Respiratory Rate 15 Blood Pressure 138/78 149/85 H Pulse Oximetry 93 Oxygen Delivery Method 03/24/23 11:36 03/24/23 12:00 03/24/23 12:01 Temperature Pulse Rate 187 H 163 H Respiratory Rate 20 24 Blood Pressure 152/91 H Pulse Oximetry 94 93 Oxygen Delivery Method 03/24/23 12:01 03/24/23 12:26 03/24/23 12:15 Temperature Pulse Rate 166 H 85 Respiratory Rate 18 Blood Pressure 125/74 Pulse Oximetry 94 Oxygen Delivery Method 03/24/23 12:15 03/24/23 12:30 03/24/23 12:30 Temperature Pulse Rate 155 H 79 Respiratory Rate 20 16 Blood Pressure 135/71 Pulse Oximetry 94 94 Oxygen Delivery Method 03/24/23 13:00 03/24/23 13:00 03/24/23 13:30 Temperature Pulse Rate 80 86 Respiratory Rate 21 23 Blood Pressure 163/73 H Pulse Oximetry 94 94 Oxygen Delivery Method 03/24/23 13:31 03/24/23 13:31 Temperature Pulse Rate 84 Respiratory Rate 23 Blood Pressure 146/78 H Pulse Oximetry 95 Oxygen Delivery Method MDM - Arrhythmia/Palpitations Lab Data 03/24/23 10:18 03/24/23 13:10 Labs: Lab Results 03/24/23 03/24/23 03/24/23 Range/Units 10:18 10:18 10:18 WBC 11.7 H (4.5-11.0) X10^3/uL RBC 4.52 (4.5-5.9) X10^6/uL Hgb 14.2 (13.5-17.5) g/dL Hct 42.8 (41-53) % MCV 94.6 (80-100) fL MCH 31.3 (26-34) PG MCHC 33.1 (30-36) % RDW 13.6 (11.6-14.8) % Plt Count 224 (150-400) X10^3/uL Neut % (Auto) 89.8 H (50-75) % Lymph % (Auto) 5.1 L (25-40) % Gaines % (Auto) 4.8 (3-14) % Eos % (Auto) 0.0 L (2-4) % Baso % (Auto) 0.3 (0-2) % Neut # (Auto) 39619 H (1321-2511) /uL Lymph # (Auto) 600 L (0110-5044) /uL Gaines # (Auto) 600 (0-900) /uL Eos # (Auto) 0 (0-450) /uL Baso # (Auto) 0 (0-100) /uL PT 10.7 (10.1-12.7) SECONDS INR 0.9 (0.9-1.3) APTT 24 L (26-36) SECONDS Sodium 140 (137-145) mmol/L Potassium 3.3 L (3.4-5.1) mmol/L Chloride 104 (98-107) mmol/L Carbon Dioxide 28 (22-32) mmol/L BUN 15 (9-20) mg/dL Creatinine 0.81 (0.66-1.25) mg/dL Estimated GFR > 60 (>60) mL/min BUN/Creatinine Ratio 18.5 (6-22) Glucose 205 H (80-110) mg/dL Calcium 8.6 (8.4-10.2) mg/dL Magnesium 2.1 (1.6-2.3) mg/dL Total Bilirubin 0.9 (0.2-1.3) mg/dL AST 205 H (17-59) IU/L ALT 267 H (<50) IU/L Alkaline Phosphatase 310 H (38-126) U/L Total Creatine Kinase 200 H (55-170) U/L Troponin I 0.023 (0.01-0.034) ng/mL NT-Pro-B Natriuret Pep (<125) pg/mL Total Protein 7.0 (6.3-8.2) g/dL Albumin 3.9 (3.5-5.0) g/dL Globulin 3.1 (1.7-4.1) g/dL Albumin/Globulin Ratio 1.3 (1.0-2.8) Lipase 347 H D (23-300) U/L 03/24/23 03/24/23 Range/Units 10:18 13:10 WBC (4.5-11.0) X10^3/uL RBC (4.5-5.9) X10^6/uL Hgb (13.5-17.5) g/dL Hct (41-53) % MCV (80-100) fL MCH (26-34) PG MCHC (30-36) % RDW (11.6-14.8) % Plt Count (150-400) X10^3/uL Neut % (Auto) (50-75) % Lymph % (Auto) (25-40) % Gaines % (Auto) (3-14) % Eos % (Auto) (2-4) % Baso % (Auto) (0-2) % Neut # (Auto) (5959-6976) /uL Lymph # (Auto) (7532-0969) /uL Gaines # (Auto) (0-900) /uL Eos # (Auto) (0-450) /uL Baso # (Auto) (0-100) /uL PT (10.1-12.7) SECONDS INR (0.9-1.3) APTT (26-36) SECONDS Sodium (137-145) mmol/L Potassium 4.1 (3.4-5.1) mmol/L Chloride (98-107) mmol/L Carbon Dioxide (22-32) mmol/L BUN (9-20) mg/dL Creatinine (0.66-1.25) mg/dL Estimated GFR (>60) mL/min BUN/Creatinine Ratio (6-22) Glucose (80-110) mg/dL Calcium (8.4-10.2) mg/dL Magnesium (1.6-2.3) mg/dL Total Bilirubin (0.2-1.3) mg/dL AST (17-59) IU/L ALT (<50) IU/L Alkaline Phosphatase (38-126) U/L Total Creatine Kinase (55-170) U/L Troponin I (0.01-0.034) ng/mL NT-Pro-B Natriuret Pep 1260 H (<125) pg/mL Total Protein (6.3-8.2) g/dL Albumin (3.5-5.0) g/dL Globulin (1.7-4.1) g/dL Albumin/Globulin Ratio (1.0-2.8) Lipase (23-300) U/L MDM Narrative Medical decision making narrative: [68] year old patient presents with elevated heart rate Multiple etiologies for patient's symptoms considered including, but not limited to: [Atrial fibrillation versus atrial flutter versus other tachyarrhythmia] Prior Charts reviewed in our EMR Primary Historian: patient Labs reviewed and interpreted by myself: Slight leukocytosis of 11.7, no signs of anemia Imaging reviewed: CXR Large left chest mass (Unchanged) Consultations: discussions with cardio as noted above. Patient's symptoms improved over duration of stay with above-stated therapies. Electrolytes improved, rate controlled and patient asymptomatic. Patient appropriate for discharge, close follow-up already achieved. Findings and discharge diagnosis discussed with patient/family followed by verbalization of understanding Return precautions discussed with patient/family whom verbalize understanding of diagnosis and plan Discharge Plan Departure Patient Disposition: Home Clinical Impression: Atrial fib/flutter, transient Instructions: DI for Arrhythmias Activity Restrictions/Additional Instructions: *You have been diagnosed with [hypokalemia and recurrent atrial flutter] *What to do: *Please increase your metoprolol from 25mg daily to 50mg daily. Otherwise, please continue to take your regular medications as directed. [ x] New medication prescriptions sent to your pharmacy: [[facility] ] [ ] New medication written as a paper prescription [ ] No new medications given *Please follow up with your primary care provider in 2-3 days, call for an appointment. Let them know you were seen in the Emergency Department and that we ask that you be seen in follow up. We will electronically transmit a record of today's note if your PCP is in our system *If you do not have a primary care provider please contact the [facility] Resource line at [phone]. They will ask some questions about your medical history and help get you set up with a doctor in the community. *Return to Emergency Department if you should have any new, worsening or concerning symptoms, such as [fever greater than 101 F, shaking chills, worsening pain, persistent vomiting or other bothersome symptoms] Prescriptions: New potassium chloride 20 mEq tablet,ER particles/crystals 20 meq PO DAILY Qty: 30 0RF Eliquis 5 mg tablet 5 mg PO BID Qty: 60 0RF No Action atorvastatin 20 mg tablet 20 mg PO BEDTIME Qty: 90 1RF lisinopril 20 mg tablet 20 mg PO BID Qty: 180 1RF amlodipine 5 mg tablet 5 mg PO DAILY Qty: 90 1RF ketoconazole 2 % cream 1 applictn TOP BID PRN (Reason: Itching) Qty: 15 5RF sildenafil [Viagra] 100 mg tablet 100 mg PO QDAY PRN (Reason: Erectile Dysfunction) Qty: 10 5RF prednisone 10 mg tablet See Rx Instructions PO DIRECTED Qty: 30 0RF Rx Instructions: orally as directed; 40mg daily for three days, 30mg for 3 days, 20mg for 3 days, 10mg for 3 days metoprolol succinate 50 mg tablet extended release 24 hr 50 mg PO DAILY Qty: 30 0RF metoprolol succinate 25 mg capsule,sprinkle,ER 24hr 25 mg PO DAILY Qty: 30 0RF Referrals: Lawson Tyler DO [Primary Care Provider] - Stand Alone Forms: Patient Portal/API
[2023-03-24 10:27] LABS: Add Manual Diff / Slide Review NO; Basophils Absolute Auto 0 /uL (0-100); Basophils Percent Auto 0.3 % (0-2); Eosinophils Absolute Auto 0 /uL (0-450); Hematocrit 42.8 % (41-53); Hemoglobin 14.2 g/dL (13.5-17.5); Lymphocytes Absolute Auto 600 /uL (1100-4500); Lymphocytes Percent Auto 5.1 % (25-40); Mean Corpuscular HGB Conc 33.1 % (30-36); Mean Corpuscular Hemoglobin 31.3 PG (26-34); Mean Corpuscular Volume 94.6 fL (80-100); Monocytes Absolute Auto 600 /uL (0-900); Monocytes Percent Auto 4.8 % (3-14); Neutrophils Absolute Auto 10500 /uL (1500-7000); Neutrophils Percent Auto 89.8 % (50-75); Platelet Count 224 X10^3/uL (150-400); Red Blood Cell Count 4.52 X10^6/uL (4.5-5.9); Red Cell Distribution Width 13.6 % (11.6-14.8); White Blood Cell Count 11.7 X10^3/uL (4.5-11.0)
--- NOTE | 2023-03-24 10:27 | PC.NURSE ---
woke this morning feeling fine, ate breakfast had a shower. [place] slightly off, checked pulse and blood pressure again and heart rate was back into 170's. Took morning metoprolol.
[2023-03-24] MEDS: METOPROLOL TARTRATE 5 MG/5 ML INJ IV ×3 (10:35→12:09)
[2023-03-24] MEDS: ASPIRIN 81 MG CHEW TAB 324 MG PO (10:35)
[2023-03-24 10:39] LABS: INR 0.9 (0.9-1.3); Prothrombin Time 10.7 SECONDS (10.1-12.7)
[2023-03-24 10:41] LABS: PTT Partial Thromboplastin Tim 24 SECONDS (26-36)
[2023-03-24 10:44] LABS: Alanine Aminotransferase 267 IU/L (<50); Albumin 3.9 g/dL (3.5-5.0); Albumin Globulin Ratio 1.3 (1.0-2.8); Alkaline Phosphatase 310 U/L (38-126); Aspartate Aminotransferase 205 IU/L (17-59); BUN Creatinine Ratio 18.5 (6-22); Bilirubin Total 0.9 mg/dL (0.2-1.3); Blood Urea Nitrogen 15 mg/dL (9-20); Calcium 8.6 mg/dL (8.4-10.2); Carbon Dioxide 28 mmol/L (22-32); Chloride 104 mmol/L (98-107); Creatine Kinase 200 U/L (55-170); Estimated Glomerular Filt Rate > 60 mL/min (>60); Globulin 3.1 g/dL (1.7-4.1); Glucose 205 mg/dL (80-110); HEMOLYSIS < 15 (0-50); Lipase 347 U/L (23-300); Magnesium 2.1 mg/dL (1.6-2.3); Potassium 3.3 mmol/L (3.4-5.1); Sodium 140 mmol/L (137-145)
[2023-03-24 10:55] LABS: Troponin I 0.023 ng/mL (0.01-0.034)
--- NOTE | 2023-03-24 10:55 | PC.NURSE ---
Patient reports new lower extremity edema. Mild swelling noted to bilateral lower ankles
[2023-03-24 11:21] LABS: NT-proBNP (BNP-Adult 18+) 1260 pg/mL (<125)
[2023-03-24] MEDS: POTASSIUM CHLORIDE 20 MEQ/15 ML UDC 40 MEQ PO (11:39)
--- NOTE | 2023-03-24 12:28 | PC.NURSE ---
Patient converted to NSR rate of 84, repeat EKG ordered. Dr Marks aware of rhythm change
[2023-03-24 13:31] LABS: HEMOLYSIS < 15 (0-50); Potassium 4.1 mmol/L (3.4-5.1)
== END 2023-03-24 14:13 | disposition home or self-care (01) ==
PROVIDERS: Emergency Provider Emergency Medicine; PCP Family Medicine
DX: I48.91 Unspecified atrial fibrillation (principal); Z79.01 Long term (current) use of anticoagulants; Z79.899 Other long term (current) drug therapy
CPT/HCPCS: 36415; 71045; 80053; 82550; 83690; 83735; 83880; 84132; 84484; 85025; 85610; 85730; 93005; 96374; 96376; 99284